=== PATIENT | female | born 1955 | race Caucasian/White ===

== ENCOUNTER 2016-03-06 12:10 | Emergency (ER) | payer MEDICARE ==
--- NOTE | 2016-03-06 12:32 | ERNOTE ---
Headache ER HPI - General Presenting Symptoms: headache, "migraine" Time Seen by Provider: 03/06/16 12:21 Source: patient Exam Limitations: no limitations - Immun/Allergies/Home Medications Immunizations: IMMUNIZATION HX Immunizations Up to Date Yes History of Influenza Vaccine No Hx Pneumococcal Vaccination No Allergies/Adverse Reactions: Allergies No Known Allergies Allergy (Verified 12/09/15 19:21) Home Medications: HOME MEDICATIONS Aspirin [Aspirin Enteric Coated] 81 mg PO DAILY 07/25/12 [Last Taken Unknown] Atenolol [Tenormin] 100 mg PO HS 07/25/12 [Last Taken Unknown] Benazepril HCl [Lotensin] 80 mg PO DAILY 07/25/12 [Last Taken 02/05/15 08:00] Ezetimibe [Zetia] 10 mg PO HS 07/25/12 [Last Taken Unknown] Fluvoxamine Maleate [Luvox Cr] 300 mg PO HS 07/25/12 [Last Taken Unknown] Insulin Lispro [Humalog] 30 unit SQ TID 07/25/12 [Last Taken Unknown] Simvastatin [Zocor] 20 mg PO HS 07/25/12 [Last Taken Unknown] Gabapentin 900 mg PO BID 09/09/13 [Last Taken Unknown] Insulin Glargine,Hum.rec.anlog [Lantus] 70 units SC BID 10/22/14 [Last Taken Unknown] Nitroglycerin [Nitrostat] 0.4 mg SL [id number] PRN 10/22/14 [Last Taken Unknown] Quetiapine Fumarate [Seroquel] 50 mg PO HS 10/22/14 [Last Taken Unknown] Zolpidem Tartrate [Ambien] 10 mg PO HS 10/22/14 [Last Taken Unknown] clonazePAM [Klonopin] 0.5 mg PO BID PRN 10/22/14 [Last Taken Unknown] rOPINIRole HCL [Requip] 0.5 mg PO HS 10/22/14 [Last Taken Unknown] Gabapentin [Neurontin] 1,200 mg PO HS 02/02/15 [Last Taken Unknown] Nystatin 100,000 unit PO QID PRN #300 oral.susp 12/09/15 [Last Taken Unknown] - History of Present Illness Narrative: PAtient started with a migraine headache yesterday during the night. This feels like the regular migraines that she gets every other month. The pain is like a band around her eyes, worse behind the right eye, nausea, no vomiting Date (Duration): 03/05/16 Time (Timing): 03:00 Activity at onset: other - sleep Timing of Headache: gradual, constant Quality: Present: achy, pressure, throbbing Severity Maximum: Present: severe Headache frequency: Present: frequent headaches Modifying Factors - (Worsens): Reports: movement, exposure to light Associated Symptoms: Reports: nausea. Denies: fever/chills, vomiting, nasal congestion, nasal drainage, weakness, vision changes, dizziness, loss of consciousness, neck pain/stiffness Exacerbated by:: Reports: light, noise, movement Prior Treament: Reports: similar symptoms before. Denies: recently seen Review of Systems - Review of Systems Constitutional: Absent: recent illness, fever EYE: Absent: vision changes ENT: Absent: nose congestion Respiratory: Absent: shortness of breath, cough Cardiology: Absent: chest pain Gastrointestinal/Abdominal: Present: nausea, diarrhea - chronic. Absent: vomiting Genitourinary: Present: no symptoms reported Neurological: Present: See HPI, headache. Absent: weakness, numbness - Patient's Past Medical History Patient History - Medical: Anxiety, Diabetes Type 2, Depression, Migraines, Osteoarthritis, Renal Failure Patient History - Cardiac/Respiratory: Hypertension, Hyperlipidemia Patient History - Cancer: No Hx of Cancer Patient History - Surgical Procedures: Total Hip Replacement, Total Knee Replacement - Family History Mother Family History - Medical: Family History - Cardiac/Respiratory: Hypertension Father Family History - Medical: , Alcohol Abuse Family History - Cardiac/Respiratory: CVA/Stroke, Hypertension - Social History Living Situations: home Smoking Status: Former smoker Alcohol Use: none Drug Use: none Physical Exam - Physical Exam General Appearance: Present: wd/wn, alert, mild distress, obese Eye Exam: Normal inspection: bilateral, PERRL: bilateral Ears, Nose, Throat: Present: normal ENT inspection, normal pharynx Neck: Present: normal inspection, nontender, full range of motion Respiratory: Present: no respiratory distress, normal breath sounds, no accessory muscle use, lungs clear Cardiovascular/Chest: Present: regular rate, rhythm, no murmur Neurological Exam: Present: alert, oriented, normal mood/affect, no motor/ sensory deficits Skin Exam: Present: normal color, warm/dry ED Progress - Vital Signs Patient's Vital Signs:: I have reviewed the patient's vital signs. - Progress/Reassessment Progress Note-Subjective: 03/06/16 12:45 discussed medications as patient has decreased kidney function will not give toradol patient states that stadol helped well in the past, no relieve with benadryl 03/06/16 13:18 patient states that her headache is better and she would like to go home will check her blood pressure at home Departure Clinical Impression: Migraine headache Qualifiers: Migraine type: unspecified Status migrainosus presence: without status migrainosus Intractability: not intractable Qualified Code(s): G43.909 - Migraine, unspecified, not intractable, without status migrainosus - Departure Disposition: Home self-care Condition: Good Instructions: Recurrent Migraine Headache, [id number] Referrals: Ray Sawyer DO [Primary Care Provider] -
[2016-03-06] MEDS ORDERED: BUTORPHANOL TARTRATE 2 MG/ML VIAL IM ONE (12:45)
[2016-03-06] MEDS ORDERED: PROMETHAZINE HCL 50 MG/ML AMPUL IM ONE ×2 (12:45→12:52)
[2016-03-06] MEDS ORDERED: BUTORPHANOL TARTRATE 2 MG/ML VIAL ONE (12:53)
[2016-03-06 13:14] VITALS: BP 197/94
== END 2016-03-06 13:24 | disposition home or self-care (01) ==
LOC: ER 12:10
DX: G43.909 Migraine, unspecified, not intractable, without status migrainosus (principal); Z87.891 Personal history of nicotine dependence; E11.9 Type 2 diabetes mellitus without complications; Z79.4 Long term (current) use of insulin; F41.9 Anxiety disorder, unspecified; F32.9 Major depressive disorder, single episode, unspecified; I10 Essential (primary) hypertension; E78.5 Hyperlipidemia, unspecified

== ENCOUNTER 2016-03-29 08:39 | Emergency (ER) | payer MEDICARE ==
[2016-03-29] MEDS ORDERED: MORPHINE SULFATE 2 MG/ML DISP.SYRIN IM ONE (09:57)
[2016-03-29 09:58] VITALS: BP 165/90
[2016-03-29] MEDS ORDERED: MORPHINE SULFATE 2 MG/ML DISP.SYRIN ONE (09:59)
--- NOTE | 2016-03-29 10:06 | ERNOTE ---
Trauma/Assault HPI - Narrative Date of Service: 03/29/16 - General Stated Complaint: FALL-ARM INJURY Time Seen by Provider: 03/29/16 08:54 Source: patient Exam Limitations: no limitations - Immun/Allergies/Home Medications Immunizations: IMMUNIZATION HX Immunizations Up to Date Yes History of Influenza Vaccine No Hx Pneumococcal Vaccination No Allergies/Adverse Reactions: Allergies No Known Allergies Allergy (Verified 03/29/16 08:52) Home Medications: HOME MEDICATIONS Aspirin [Aspirin Enteric Coated] 81 mg PO DAILY 07/25/12 [Last Taken Unknown] Atenolol [Tenormin] 100 mg PO HS 07/25/12 [Last Taken Unknown] Benazepril HCl [Lotensin] 80 mg PO DAILY 07/25/12 [Last Taken 02/05/15 08:00] Ezetimibe [Zetia] 10 mg PO HS 07/25/12 [Last Taken Unknown] Fluvoxamine Maleate [Luvox Cr] 300 mg PO HS 07/25/12 [Last Taken Unknown] Insulin Lispro [Humalog] 30 unit SQ TID 07/25/12 [Last Taken Unknown] Simvastatin [Zocor] 20 mg PO HS 07/25/12 [Last Taken Unknown] Gabapentin 900 mg PO BID 09/09/13 [Last Taken Unknown] Insulin Glargine,Hum.rec.anlog [Lantus] 70 units SC BID 10/22/14 [Last Taken Unknown] Nitroglycerin [Nitrostat] 0.4 mg SL [id number] PRN 10/22/14 [Last Taken Unknown] Quetiapine Fumarate [Seroquel] 50 mg PO HS 10/22/14 [Last Taken Unknown] Zolpidem Tartrate [Ambien] 10 mg PO HS 10/22/14 [Last Taken Unknown] clonazePAM [Klonopin] 0.5 mg PO BID PRN 10/22/14 [Last Taken Unknown] rOPINIRole HCL [Requip] 0.5 mg PO HS 10/22/14 [Last Taken Unknown] Gabapentin [Neurontin] 1,200 mg PO HS 02/02/15 [Last Taken Unknown] Nystatin 100,000 unit PO QID PRN #300 oral.susp 12/09/15 [Last Taken Unknown] Hydrocodone/Acetaminophen [[place] 5-325 Tablet] 1 tab PO Q6H PRN #20 tab [Last Taken Unknown] - History of Present Illness Narrative: Patient fell just [employer]. She states she was half asleep and fell on her left arm. Immediate pain left arm, can be severe with movement. This is mostly localized to the shoulder area. No syncope. No LOC, no CHAUDHARI. No midline neck or back pain. Left forearm also hurts. Mild right lateral hip pain. Pain worse with movement. Has not seen anyone else for this. No CP or SOB, no abdominal pain. Location Occurred: Reports: home Pain Location: Reports: other - mostly left shoulder. Also right lateral hip and left forearm. Method of Injury: Reports: fall, other - no syncope Severity: severe Modifying Factors - (Improves): Reports: rest Modifying Factors - (Worsens): Reports: movement Loss of Consciousness: Reports: no loss of consciousness Associated Symptoms - Trauma: Denies: lightheadedness, abdominal pain Review of Systems - Review of Systems Constitutional: Absent: fever EYE: Present: no symptoms reported ENT: Present: no symptoms reported Respiratory: Absent: shortness of breath Cardiology: Absent: chest pain Gastrointestinal/Abdominal: Absent: abdominal pain Musculoskeletal: Present: See HPI Skin: Present: other - no laceration - Patient's Past Medical History Patient History - Medical: Chronic Pain, Diabetes Type 2, Renal Disease, Other Patient History - Cardiac/Respiratory: Hypertension, Hyperlipidemia Patient History - Cancer: No Hx of Cancer Patient History - Surgical Procedures: Appendectomy, Cholecystectomy, Total Hip Replacement, Total Knee Replacement, Other - Family History Mother Family History - Medical: Family History - Cardiac/Respiratory: Hypertension Father Family History - Medical: , Alcohol Abuse Family History - Cardiac/Respiratory: CVA/Stroke, Hypertension - Social History Living Situations: home Smoking Status: Never smoker Have you smoked in the past 12 months: No Alcohol Use: none Drug Use: none Physical Exam - Physical Exam General Appearance: Present: alert, no apparent distress Eye Exam: Normal inspection: bilateral, PERRL: bilateral Ears, Nose, Throat: Present: normal ENT inspection, normal pharynx. Absent: dry mucous membranes Neck: Present: normal inspection, other - trachea midline. There is no localizing point vertebral tenderness posteriorly. No suggestion of c-spine injury. Respiratory: Present: no respiratory distress, normal breath sounds, lungs clear Cardiovascular/Chest: Present: regular rate, rhythm, normal peripheral pulses Peripheral Pulses: N=norm/S=strong/W=weak/B=bound/A=absent: Radial (L): Normal Gastrointestinal/Abdominal: Present: normal bowel sounds, nontender, soft. Absent: tenderness Back Exam: Present: normal inspection, no vertebral tenderness, other - no bone tenderness T/L spine Extremity Exam: Present: other - Tenderness left shoulder. Mild left forearm. Limited ROM left shoulder. No elbow tendenress or wrist/hand tenderness. Strong pulses. No compartment syndrome. Mild lateral left hip tendenress. Otherwise LE not tender and normal ROM except left shoulder Neurological Exam: Present: alert, oriented, normal mood/affect, no motor/ sensory deficits, other - Pain limits exam but no clear motor defidits. No deficits to LT including lateral left shoulder. Skin Exam: Present: other - no laceration ED Progress - Vital Signs Patient's Vital Signs:: I have reviewed the patient's vital signs. Vital Signs: Vital Signs 03/29/16 03/29/16 08:47 09:57 Temperature 36.9 C Pulse Rate 89 89 Respiratory 14 14 Rate Blood Pressure 190/97 165/90 O2 Sat by Pulse 97 95 Oximetry - X-Ray X-Ray #1 X-Ray: pelvis/hip, shoulder, humerus and forearm X-ray Comments: I reviewed all x-ray reports and x-ray results. - Progress/Reassessment Chief Complaint: Fall Progress:: Re-examined Progress Note-Subjective: 03/29/16 10:19 D/W Ortho (Lila Rodas) who looked at x-rays. Shoulder immobilizer and office follow-up sunday. Departure Clinical Impression: Fall, Fracture of humeral head, left, closed - Departure Disposition: Home self-care Condition: Stable Instructions: Humerus Fracture Treated With Immobilization, [id number] Additional Instructions: Rest. Ice. Shoulder Immobilizer as directed. You are to be seen by orthopedics Sunday. Call today for an appointment time. Return for increased pain, numbness, tingling, weakness or if your condition worsens or changes in any way. No driving with pain meds. Referrals: Ray Sawyer DO [Primary Care Provider] - Prescriptions: Hydrocodone/Acetaminophen [[place] 5-325 Tablet] 1 tab PO Q6H PRN #20 tab PRN Reason: Pain
== END 2016-03-29 10:37 | disposition home or self-care (01) ==
LOC: ER 08:39
PROC: 2W39X1Z Immobilization of Left Upper Extremity using Splint (ICD-10-PCS; principal; 2016-03-29)
DX: S42.292A Other displaced fracture of upper end of left humerus, initial encounter for closed fracture (principal); W19.XXXA Unspecified fall, initial encounter; E11.9 Type 2 diabetes mellitus without complications; Z79.4 Long term (current) use of insulin; I10 Essential (primary) hypertension; E78.5 Hyperlipidemia, unspecified

== ENCOUNTER 2016-04-16 09:02 | Emergency (ER) | payer MEDICARE ==
--- OUTSIDE RECORDS SUMMARY | 2016-04-16 09:58 | XMS REPORT | Continuity of Care Document ---
:1955 Author Organization [facility] ([facility]) Address [address] [place] [address] Phone [phone] Care Team Providers Name Role Phone Ray Sawyer Primary Care Provider Unavailable Source Comments This disclosure is being made pursuant to the Care Everywhere program, applicable federal and state laws, and may not contain all informaitonavailable regarding this patient.[facility] ([facility]) Active Allergies and Adverse Reactions Allergen Noted Date Severity Reactions Comments No Known Allergies 06/30/2008 NO REACTION Current Medications Prescription Sig. Disp. Refills Start Date End Date Status fluvoxamine (LUVOX) Take 200 mg by mouth Active 100 mg tablet every evening. zolpidem (AMBIEN CR) Take 12.5 mg by Active 12.5 mg CR tablet mouth at bedtime as needed. atenolol (TENORMIN) Take 100 mg by mouth Active 100 mg tablet daily. aspirin 81 mg EC Take 81 mg by mouth Active tablet daily. insulin lispro inject Active (HUMALOG) 100 subcutaneously 4 unit/mL injection times daily. Indications: Diabetes Mellitus, As per sliding scale QID albuterol 2.5 mg/3 Use 3 mL by Active mL inhalation inhalation every 6 solution hours as needed. insulin glargine inject Active (LanTUS) 100 unit/mL subcutaneously. injection vial Inject 60 units every morning and 70 units at bedtime. simvastatin 20 mg Take 20 mg by mouth Active tablet every evening. ezetimibe (ZETIA) 10 Take 10 mg by mouth Active mg tablet daily. benazepril 40 mg Take 40 mg by mouth Active tablet 2 times daily. rOPINIRole 0.5 mg Take 0.5 mg by mouth Active tablet 3 times daily. clonazePAM 0.5 mg Take 0.5 mg by mouth Active tablet at bedtime as needed (almost every day). multivitamin tablet Take 1 Tab by mouth Active daily. gabapentin 300 mg 01/11/2015 Active capsule QUEtiapine 50 mg 02/23/2015 Active tablet HYDROcodone-acetamin 12/15/2015 Active ophen 5-325 mg per tablet nitrofurantoin 12/10/2015 Active (MACROBID) 100 mg capsule metFORMIN 500 mg Take 2 tablets 360 tablet 3 12/16/2015 Active tablet (1,000 mg total) by mouth 2 times daily. liraglutide Inject 0.2 mL (1.2 6 mL 11 12/16/2015 Active (VICTOZA) 0.6 mg/0.1 mg total) mL injection pen (3 subcutaneously mL) daily. SUPPLY BD ULTRA-FINE Use daily with 100 Each 3 12/16/2015 Active JAY 32 x 4 MM pen liraglutide needle diltiazem 120 mg ER Take 1 capsule (120 90 capsule 7 01/13/2016 Active capsule mg total) by mouth daily. 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 Last Filed Vital Signs Vital Sign Reading Time Taken Blood Pressure 151/81 01/13/2016 4:18 PM [facility] Pulse 83 01/13/2016 4:18 PM [facility] Temperature 37 C (98.6 F) 01/13/2016 4:18 PM [facility] Respiratory Rate 16 01/01/2013 9:05 AM CDT Height 1.57 m (5' 1.81") 01/13/2016 4:18 PM [facility] Weight 105.9 kg (233 lb 7.5 oz) 01/13/2016 4:18 PM [facility] Body Mass Index 42.96 01/13/2016 4:18 PM [facility] Oxygen Saturation 95% 10/16/2012 11:21 AM CDT Plan of Care Date Type Specialty Providers Description 04/17/2016 Appointment Diabetes Services Oswaldo Vasquez MD Subj: Upcoming Appt [address] [place] [address] [phone] (Fax) 04/17/2016 Appointment Diabetes Services Dian Mcintosh RD Subj: Upcoming Appt LD Reminder [address] [place] [address] [phone] (Fax) 07/11/2016 Appointment Urology Pam Cramer, Subj: Appointment MD Scheduled [address] [place] [address] [phone] (Fax) Health Maintenance Due Date Last Done Comments HCV Screening 1955 Hepatitis B Vaccine (1 of 3 - 1955 Primary Series) Tdap Vaccine 09/30/1966 MMR Vaccine 09/30/1973 Td Vaccine 09/30/1973 Pneumococcal Vaccine (1 of 09/30/1974 - PPSV23) DIABETIC: Triglycerides 09/04/2002 09/04/2001 Colonoscopy 09/30/2005 DIABETIC: Microalbumin 01/19/2006 01/19/2005 Cervical Cancer Screening 05/01/2006 05/01/2003 DIABETIC: Cholesterol 05/04/2006 05/04/2005, 09/04/2001, 08/08/2001 Diabetic: Hdl 05/04/2006 05/04/2005, 09/04/2001, 08/08/2001 Diabetic: Ldl 05/04/2006 05/04/2005, 09/04/2001 DIABETIC: Foot Exam 08/16/2010 DIABETIC: Retinal Eye Exam 08/16/2010 Mammogram 12/17/2014 12/17/2013 (Previously completed) Zoster Vaccine 2015 Influenza Vaccine: Seasonal 10/04/2015 (#1) DIABETIC: Hemoglobin A1C 06/15/2016 12/16/2015, Additional history exists 08/05/2014, 08/14/2011 Procedures from Last 3 Months Procedure Name Priority Date/Time Associated Diagnosis Comments ABSTRACTED BY Routine 02/01/2016 6:57 Other urinary Results for this BILLING STAFF - NW AM [facility] incontinence procedure are in the results section. Results from Last 3 Months OTHER PROCEDURE (02/01/2016 6:57 AM) Narrative Pam Cramer MD 02/01/20166:57 AM Urology Clinic Note Encounter Date: 01/11/2016 Subjective: Chief Complaint Chief Complaint Patient presents with Patient Reported Reason For Visit RTN 3-4 months History of Present Illness: Lesly Michaud is a 60 y.o. female seen as follow up. The patient has has hx of fascia lauren sling for TOYA with subsequent improvement in symptoms. She underwent InterStim placement in September 2012 for urinary urgency-frequency which worked very well initially. She was last seen in March 2015 at which time the InterStim appeared to not be working well. However, upon interrogation the device was working correctly. At that time her symptoms were more consistent with nocturnal enuresis and UUI. She was asked to fill a voiding diary and was recommended to use her CPAP for ODALIS consistently. She returned last to urology on 08/12/15. She underwent right hip replacement on July 12, 2015 and after the procedure she had a UTI which was treated with antibiotics with subsequent development of vaginal yeast infection and thrush. She continued to be bothered by her symptoms, mainly nocturia x [address] to the toilette most of the times, and occasional nocturnal enuresis. She reported that she wore diapers at all times .At that time, she was told tosee her PCPfor management of DM and lower extremity edema. Today the patient states she has better control blood sugars. She also uses her CPAP machine each evening for her obstructive sleep apnea that she thinks helps as well. She reports a better control of symptoms. She has some urgency. She does not leak a lot of urine and uses a depends only at night. Other past medical history unchanged since previous urology visit. Social history: Previous smoker. Family history: No cancer. Active Problem List with Overview Notes Diagnosis Date Noted Peripheral neuropathy 08/05/2014 TOYA (stress urinary incontinence, female) 08/14/2011 Mixed stress and urge urinary incontinence 05/24/2011 Type II or unspecified type diabetes mellitus without mention of complication, uncontrolled 01/19/2005 Other and unspecified hyperlipidemia 01/19/2005 Unspecified essential hypertension 09/23/2001 Past Surgical History Procedure Laterality Date Tonsillectomy and adenoidectomy Appendectomy Carpal tunnel [id number] Rt Cholecystectomy, [id number] Total knee [id number] left Hysterectomy Cholecystectomy Gu urodynamic06/30/2011 Sling opration f/strs incont08/14/2011 Procedure: SLING FOR OPERATION TOYA (FASCIA JAMILAH OR RECTUS GRAFT);Surgeon: Pam Cramer MD;Location: MAIN OR; Service: Urology Family History Problem Relation Age of Onset Thyroid Disease Mother goiter Social History Social History Marital Status: Spouse Name: N/A Number of Children: N/A Years of Education: N/A Occupational History Not on file. 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 aspirin 81 mg EC tablet Take 81 mg by mouth daily. atenolol (TENORMIN) 100 mg tablet Take 100 mg by mouth daily. benazepril 40 mg tablet Take 40 mg by mouth 2 times daily. clonazePAM 0.5 mg tablet Take 0.5 mg by mouth at bedtime as needed (almost every day). ezetimibe (ZETIA) 10 mg tablet Take 10 mg by mouth daily. fluvoxamine (LUVOX) 100 mg tablet Take 200 mg by mouth every evening. gabapentin 300 mg capsule HYDROcodone-acetaminophen 5-325 mg per tablet insulin glargine (LanTUS) 100 unit/mL injection vial inject subcutaneously. Inject 60 units every morning and 70 units at bedtime. insulin lispro (HUMALOG) 100 unit/mL injection inject subcutaneously 4 times daily. Indications: Diabetes Mellitus, As per sliding scale QID liraglutide (VICTOZA) 0.6 mg/0.1 mL injection pen (3 mL) Inject 0.2 mL (1.2 mg total) subcutaneously daily. 6 mL 11 metFORMIN 500 mg tablet Take 2 tablets (1,000 mg total) by mouth 2 times daily. 360 tablet 3 multivitamin tablet Take 1 Tab by mouth daily. nitrofurantoin (MACROBID) 100 mg capsule QUEtiapine 50 mg tablet rOPINIRole 0.5 mg tablet Take 0.5 mg by mouth 3 times daily. simvastatin 20 mg tablet Take 20 mg by mouth every evening. SUPPLY BD ULTRA-FINE JAY 32 x 4 MM pen needle Use daily with liraglutide 100 Each 3 zolpidem (AMBIEN CR) 12.5 mg CR tablet Take 12.5 mg by mouth at bedtime as needed. No current facility-administered medications for this visit. Allergies Allergen Reactions No Known Allergies NO REACTION Review of Systems All systems were reviewed and are negative except for: Constitutional: Night Sweats, Tired or sleepy Eyes: Blurry vision, Trouble seeing with glasses Ears: Ringing in the ears Nose/throat/mouth: Nose problems GI: Stomach pain, Nausea, Loss of bowel control, Constipation, Diarrhea, Black stools Urogenital:Burning on urination, Recent urinary infection Musculoskeletal: Joint pain, Joint stiffness, Leg Pain Neurological: Dizziness, Numbness of an arm/leg, Weakness of an arm/leg Mental Health: Anxiety Kidney disease: Yes See HPI. All other ROS negative. Objective: BP 183/84 mmHg | Pulse 81 | Temp(Src) 36.3 C (97.4 F) (Tympanic) General: alert and in no apparent distress. Psych: normal affect Eyes: eyes anicteric Mouth: oral mucosa moist Neck: No carotid bruit Cardiac: Normal rate and rhythm Respiratory: Lungs CTA. Musculoskeletal:extremitiesatraumatic, no cyanosis or edema Neuro: grossly normal Abdominal: soft, non-tender. Back: No CVA tenderness In terstim interrogation Supervision type: Indirect InterStim device off .InterStim was then turned on. Interrogation shows program 1 for 100% of the time. Positive lead 3. Negative lead 2 and 1. Amplitude 3.5. Impedance checks range 544-1122. Longevity 14-24 months. Assessment: Lesly Michaud is a 60 y.o. female with hx of fascia lauren sling for TOYA with subsequent improvement in symptoms. S/p InterStim placement in September 2012. Plan: Return in 6 months follow up. Staff Physician Comments Staff Involved Staff and PA/ORAL HYGIENIST/PNP/NM (team effort NPP & Faculty documentation) Staff Physician Statement I have discussed the case with the non-physician provider and have personally documented the History, Physical Exam, and Assessment and Plan in the Staff Physician Note section as noted below. Staff Physician Note History (document those sections reviewed, i.e., HPI, ROS, Medical, Family, Social): Ms. Michaud is a 60 yo female with a long hx of TJ s/p FL sling and Interstim placement.At her last visit she was having she was still having issues with night.Since using her CPAP more regularly her night symptoms have improved.She still uses a depends at night only.Day she has some urgency but overall has better control. Physical Exam: BP 183/84 mmHg | Pulse 81 | Temp(Src) 36.3 C (97.4 F) (Tympanic) General appearance: alert, cooperative, no distress, appears stated age Assessment: Ms. Michaud is a 60 yo female s/p FL sling and Interstim placement who has had improvement in symptoms with BGT control and use of CPAP for her ODALIS. ICD-9-CM ICD-10-CM 1. Other urinary incontinence 788.39 N39.498 FOLLOW-UP - UROLOGY OTHER PROCEDURE Plan: RTC in 6 months Pam Cramer MD Clinical Social Worker Clinical Department of Urology Valerie Jo PA-C
[2016-04-16 12:09] VITALS: BP 168/92
--- NOTE | 2016-04-16 12:23 | ERNOTE ---
Upper Extremity HPI - Narrative Date of Service: 04/16/16 - General Extremities Pain Location: shoulder: left Time Seen by Provider: 04/16/16 09:31 Source: patient Exam Limitations: no limitations - Immun/Allergies/Home Medications Immunizations: IMMUNIZATION HX Immunizations Up to Date Yes History of Influenza Vaccine No Hx Pneumococcal Vaccination No Allergies/Adverse Reactions: Allergies Allergy/AdvReac Type Severity Reaction Status Date / Time No Known Allergies Allergy Verified 04/16/16 09:15 Home Medications: HOME MEDICATIONS Aspirin [Aspirin Enteric Coated] 81 mg PO DAILY 07/25/12 [Last Taken Unknown] Atenolol [Tenormin] 100 mg PO HS 07/25/12 [Last Taken Unknown] Benazepril HCl [Lotensin] 80 mg PO DAILY 07/25/12 [Last Taken 02/05/15 08:00] Ezetimibe [Zetia] 10 mg PO HS 07/25/12 [Last Taken Unknown] Fluvoxamine Maleate [Luvox Cr] 300 mg PO HS 07/25/12 [Last Taken Unknown] Insulin Lispro [Humalog] 30 unit SQ TID 07/25/12 [Last Taken Unknown] Simvastatin [Zocor] 20 mg PO HS 07/25/12 [Last Taken Unknown] Gabapentin 900 mg PO BID 09/09/13 [Last Taken Unknown] Insulin Glargine,Hum.rec.anlog [Lantus] 70 units SC BID 10/22/14 [Last Taken Unknown] Nitroglycerin [Nitrostat] 0.4 mg SL [id number] PRN 10/22/14 [Last Taken Unknown] Quetiapine Fumarate [Seroquel] 50 mg PO HS 10/22/14 [Last Taken Unknown] Zolpidem Tartrate [Ambien] 10 mg PO HS 10/22/14 [Last Taken Unknown] clonazePAM [Klonopin] 0.5 mg PO BID PRN 10/22/14 [Last Taken Unknown] rOPINIRole HCL [Requip] 0.5 mg PO HS 10/22/14 [Last Taken Unknown] Gabapentin [Neurontin] 1,200 mg PO HS 02/02/15 [Last Taken Unknown] Nystatin 100,000 unit PO QID PRN #300 oral.susp 12/09/15 [Last Taken Unknown] Hydrocodone/Acetaminophen [[place] 5-325 Tablet] 1 tab PO Q6H PRN #20 tab [Last Taken Unknown] Metformin HCl [Glumetza] 500 mg PO BID 04/16/16 [Last Taken Unknown] oxyCODONE HCL/ACETAMINOPHEN [Percocet 5 MG/325 MG] 1 tab PO Q6H PRN #20 tablet 04/16/16 [Last Taken Unknown] - History of Present Illness Narrative: patient has a known left proximal humerus fracture and has seen ortho for this. She is in an shoulder immobilizer. She has another fall (she suffers from frequent falls and is being seen [facility] for this) 2 days ago, landing on the shoulder. She has more pain in the shoulder since then. No other injuries. Her hand is swollen on the left since the fracture. No acute focal N/T/W. Pain worse with any kind of movement. No fever. Occurred: other - initial injury 2 weeks ago Location of Incident: home Severity: other - pain can be severe with movement Method of Injury: Reports: fell Reason for Fall: Reports: other - frequent dalls Loss of Consciousness: Reports: no loss of consciousness Modifying Factors - (Improves): Reports: immobilization Modifying Factors - (Worsens): Reports: movement Associated Symptoms: Reports: other - hand swelling. Denies: tingling, weakness , numbness distally, loss of feeling Other Injuries: Reports: none Prior Treament: Reports: recently seen Review of Systems - Review of Systems Constitutional: Absent: fever Respiratory: Present: no symptoms reported Cardiology: Present: no symptoms reported Gastrointestinal/Abdominal: Present: no symptoms reported - Patient's Past Medical History Patient History - Medical: Chronic Pain, Diabetes Type 2, Renal Disease, Other Patient History - Cardiac/Respiratory: Hypertension, Hyperlipidemia Patient History - Cancer: No Hx of Cancer Patient History - Surgical Procedures: Appendectomy, Cholecystectomy, Total Hip Replacement, Total Knee Replacement, Other Patient History - Other: None - Family History Mother Family History - Medical: Family History - Cardiac/Respiratory: Hypertension Father Family History - Medical: , Alcohol Abuse Family History - Cardiac/Respiratory: CVA/Stroke, Hypertension - Social History Living Situations: home Abuse History: No History of abuse Psych History: Hx of Anxiety, Hx of Depression Alcohol Use: none Drug Use: none - Immunizations Immunizations Up to Date: Yes Hx Pneumococcal Vaccination: No History of Influenza Vaccine: No Physical Exam - Physical Exam General Appearance: Present: alert, no apparent distress Eye Exam: Normal inspection: bilateral, PERRL: bilateral Ears, Nose, Throat: Present: normal ENT inspection Neck: Present: normal inspection. Absent: tender posterior midline Respiratory: Present: no respiratory distress, no accessory muscle use, lungs clear Cardiovascular/Chest: Present: regular rate, rhythm, normal peripheral pulses, other - strong radial pulse Gastrointestinal/Abdominal: Present: normal bowel sounds, nontender Back Exam: Present: normal range of motion, other. Absent: vertebral tenderness Extremity Exam: Present: other - Tenderness left shoulder, in immobilizer. Bruising noted. Mild swelling left hand. This is likely from the proximal fracture. No compartment syndrome or other tendenress noted. Strong radial pulse Neurological Exam: Present: alert, normal mood/affect, no motor/sensory deficits , other - Exam limited by pain and immobilizer but no clear acute focl motor or sensory deficits. No clear LUE deficits. Skin Exam: Absent: skin rash ED Progress - Vital Signs Patient's Vital Signs:: I have reviewed the patient's vital signs. Vital Signs: Vital Signs 04/16/16 09:10 Temperature 36.0 C L Pulse Rate 84 Respiratory 12 Rate Blood Pressure 179/98 O2 Sat by Pulse 96 Oximetry - X-Ray X-Ray #1 X-Ray: shoulder Interpretation: Reviewed by me X-ray Comments: I reviewed official radiology report - CT/Ultrasound CT/Ultrasound Narrative: US negative for DVT. Official report reviewed. - Progress/Reassessment Chief Complaint: Upper Extremity Injury/Problem Progress Note-Subjective: 04/16/16 12:22 i spoke with Kalin Alston after imaging back. He recommends CPM and office f/u. Pt agreeable. I discussed warning signs and reasons to return as well as the need for close f/u. Departure Clinical Impression: Arm pain, Proximal humerus fracture - Departure Disposition: Home self-care Condition: Stable Instructions: Humerus Fracture Treated With Immobilization, [id number] Additional Instructions: I discussed your case with orthopedicsLv. Continue your immobilizer. Call the office tomorrow with phone follow-up. Stop current pain medications and begin new pain medications, no driving while taking. Return for increased pain, numbness, tingling, weakness or if your condition worsens or changes in any way. Referrals: Ray Sawyer DO [Primary Care Provider] - Prescriptions: oxyCODONE HCL/ACETAMINOPHEN [Percocet 5 MG/325 MG] 1 tab PO Q6H PRN #20 tablet PRN Reason: Pain
== END 2016-04-16 12:08 | disposition home or self-care (01) ==
LOC: ER 09:02
DX: S42.202A Unspecified fracture of upper end of left humerus, initial encounter for closed fracture (principal); M79.602 Pain in left arm; W19.XXXA Unspecified fall, initial encounter; Z91.81 History of falling; Y92.009 Unspecified place in unspecified non-institutional (private) residence as the place of occurrence of the external cause; E11.9 Type 2 diabetes mellitus without complications; Z79.4 Long term (current) use of insulin; I10 Essential (primary) hypertension; E78.5 Hyperlipidemia, unspecified

== ENCOUNTER 2016-06-19 20:40 | Emergency (ER) | payer MEDICARE ==
--- NOTE | 2016-06-19 21:01 | ERNOTE ---
Trauma/Assault HPI - Narrative Date of Service: 06/19/16 - General Stated Complaint: FALL - POSSIBLE PILL OVERDOSE Time Seen by Provider: 06/19/16 20:57 Source: patient - Immun/Allergies/Home Medications Immunizations: IMMUNIZATION HX Immunizations Up to Date Yes History of Influenza Vaccine No Hx Pneumococcal Vaccination No Allergies/Adverse Reactions: Allergies No Known Allergies Allergy (Verified 04/16/16 09:15) Home Medications: HOME MEDICATIONS Aspirin [Aspirin Enteric Coated] 81 mg PO DAILY 07/25/12 [Last Taken Unknown] Atenolol [Tenormin] 100 mg PO HS 07/25/12 [Last Taken Unknown] Benazepril HCl [Lotensin] 80 mg PO DAILY 07/25/12 [Last Taken 02/05/15 08:00] Ezetimibe [Zetia] 10 mg PO HS 07/25/12 [Last Taken Unknown] Fluvoxamine Maleate [Luvox Cr] 300 mg PO HS 07/25/12 [Last Taken Unknown] Insulin Lispro [Humalog] 30 unit SQ TID 07/25/12 [Last Taken Unknown] Simvastatin [Zocor] 20 mg PO HS 07/25/12 [Last Taken Unknown] Gabapentin 900 mg PO BID 09/09/13 [Last Taken Unknown] Insulin Glargine,Hum.rec.anlog [Lantus] 70 units SC BID 10/22/14 [Last Taken Unknown] Nitroglycerin [Nitrostat] 0.4 mg SL [id number] PRN 10/22/14 [Last Taken Unknown] QUEtiapine FUMARATE [Seroquel] 50 mg PO HS 10/22/14 [Last Taken Unknown] Zolpidem Tartrate [Ambien] 10 mg PO HS 10/22/14 [Last Taken Unknown] clonazePAM [Klonopin] 0.5 mg PO BID PRN 10/22/14 [Last Taken Unknown] rOPINIRole HCL [Requip] 0.5 mg PO HS 10/22/14 [Last Taken Unknown] Gabapentin [Neurontin] 1,200 mg PO HS 02/02/15 [Last Taken Unknown] Nystatin 100,000 unit PO QID PRN #300 oral.susp 12/09/15 [Last Taken Unknown] HYDROcodone/ACETAMINOPHEN [[place] 5-325 Tablet] 1 tab PO Q6H PRN #20 tab [Last Taken Unknown] metFORMIN HCL [Glumetza] 500 mg PO BID 04/16/16 [Last Taken Unknown] oxyCODONE HCL/ACETAMINOPHEN [Percocet 5 MG/325 MG] 1 tab PO Q6H PRN #20 tablet 04/16/16 [Last Taken Unknown] - History of Present Illness Narrative: 60 year old that fell at home hitting her head. There was no LOC. She admits to EMS that she took too many Clonazepem but denies suicidal ideations. Her spouse believes that she has not been her self all day due to her being argumentative and oppositional. The patient consumed approximately 90 plus tablets of Klonopin in four days. The believes that she was stressed about her son relapsing drug abuse behavior. She also has a history of drug abuse. During the interview the patient had minimal responses to questions, therefore most of the history was obtained from the . The patient denies any pain or shortness of breath. Location Occurred: Reports: home Pain Location: Reports: none Method of Injury: Reports: fall Severity: mild Modifying Factors - (Improves): Reports: other - nothing Modifying Factors - (Worsens): Reports: other - nothing Loss of Consciousness: Reports: no loss of consciousness Associated Symptoms - Trauma: Reports: denies symptoms Review of Systems - Review of Systems Constitutional: Present: no symptoms reported EYE: Present: no symptoms reported ENT: Present: no symptoms reported Respiratory: Present: no symptoms reported Cardiology: Present: no symptoms reported Gastrointestinal/Abdominal: Present: no symptoms reported Genitourinary: Present: no symptoms reported Musculoskeletal: Present: no symptoms reported Skin: Present: no symptoms reported Neurological: Present: no symptoms reported Endocrine: Present: no symptoms reported Hematologic/Lymphatic: Present: no symptoms reported Psych: Present: no symptoms reported - Patient's Past Medical History Patient History - Medical: Chronic Pain, Diabetes Type 2, Renal Disease, Other Patient History - Cardiac/Respiratory: Hypertension, Hyperlipidemia Patient History - Cancer: No Hx of Cancer Patient History - Surgical Procedures: Appendectomy, Cholecystectomy, Total Hip Replacement, Total Knee Replacement, Other Patient History - Other: None - Family History Mother Family History - Medical: Family History - Cardiac/Respiratory: Hypertension Father Family History - Medical: , Alcohol Abuse Family History - Cardiac/Respiratory: CVA/Stroke, Hypertension - Social History Living Situations: home Abuse History: No History of abuse Psych History: Hx of Anxiety, Hx of Depression Alcohol Use: none Drug Use: none - Immunizations Immunizations Up to Date: Yes Hx Pneumococcal Vaccination: No History of Influenza Vaccine: No Physical Exam - Physical Exam General Appearance: Present: no apparent distress Eye Exam: Normal inspection: bilateral, PERRL: bilateral, EOMI: bilateral Ears, Nose, Throat: Present: normal ENT inspection Neck: Present: normal inspection, nontender, supple Respiratory: Present: no respiratory distress Cardiovascular/Chest: Present: regular rate, rhythm Gastrointestinal/Abdominal: Present: nontender, nondistended, soft Back Exam: Present: normal inspection Extremity Exam: Present: normal inspection, other - some difficulty with extending the left hip on commands Neurological Exam: Present: alert, other - appears intoxicated; Slow to respond to commands. Confused when requested to raise either arm. Skin Exam: Present: normal color ED Progress - Results and Orders Patient's Lab Results:: I have reviewed the patient's lab results. - Vital Signs Patient's Vital Signs:: I have reviewed the patient's vital signs. Vital Signs: Vital Signs 06/19/16 20:44 Temperature 37.2 C Pulse Rate 95 Respiratory 18 Rate O2 Sat by Pulse 95 Oximetry - EKG EKG: NSR EKG read: Interp. by me EKG Comments: Rate 91, normal axis - CT/Ultrasound CT/Ultrasound Narrative: Questionable subarachinoid hemorrhage. - Progress/Reassessment Chief Complaint: Fall Progress:: Unchanged Departure Clinical Impression: Overdose, Fall, Head injury - Departure Disposition: Other health care facility Condition: Fair Referrals: Ray Sawyer DO [Primary Care Provider] -
--- OUTSIDE RECORDS SUMMARY | 2016-06-19 21:10 | XMS REPORT | Continuity of Care Document ---
:1955 Author Organization [facility] ([facility]) Address [address] [place] [address] Phone [phone] Care Team Providers Name Role Phone Ray Sawyer Primary Care Provider Unavailable Source Comments This disclosure is being made pursuant to the Care Everywhere program, applicable federal and state laws, and may not contain all informaitonavailable regarding this patient.[facility] ([facility]) Active Allergies and Adverse Reactions Allergen Noted [...] unspecified hyperlipidemia 01/19/2005 Unspecified essential hypertension 09/23/2001 Most Recent Encounters Date Type Specialty Providers Description 04/17/2016 Office Visit Diabetes Services Dian Mcintosh RD Subj: Upcoming Appt LD Reminder 04/17/2016 Office Visit Diabetes Services Oswaldo Vasquez MD Subj: Upcoming Appt Reminder Social History Tobacco Use Types Packs/Day Years Used Date Former Smoker 1.5 20 Quit: 03/05/2004 Smokeless Tobacco: Never Used Tobacco Cessation:Counseling Given: Yes Comments: Alcohol Use Drinks/Week oz/Week Comments No 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 Last Filed Vital Signs Vital Sign Reading Time Taken Blood Pressure 151/81 01/13/2016 4:18 PM DRILL DOCTOR Pulse 83 01/13/2016 4:18 PM DRILL DOCTOR Temperature 37 C (98.6 F) 01/13/2016 4:18 PM DRILL DOCTOR Respiratory Rate 16 01/01/2013 9:05 AM CDT Height 1.57 m (5' 1.81") 01/13/2016 4:18 PM DRILL DOCTOR Weight 105.9 kg (233 lb 7.5 oz) 01/13/2016 4:18 PM DRILL DOCTOR Body Mass Index 42.96 01/13/2016 4:18 PM DRILL DOCTOR Oxygen Saturation 95% 10/16/2012 11:21 AM CDT Plan of Care Date Type Specialty Providers Description 07/04/2016 Appointment Diabetes Services Oswaldo Vasquez MD Subj: Appointment [address] [place] [address] [phone] (Fax) 07/04/2016 Appointment Diabetes Services Dian Mcintosh RD Subj: Appointment LD Rescheduled [address] [place] [address] [phone] (Fax) 07/11/2016 Appointment Urology Pam Cramer, Subj: Appointment Scheduled [address] [place] [address] [phone] (Fax) 07/27/2016 Appointment Neurology Rodriguez Treviño, Subj: Appointment MD Lambert Scheduled [address] [place] [address] [phone] (Fax) Health Maintenance Due Date Last Done Comments HCV Screening 1955 Hepatitis B Vaccine (1 of 3 - 1955 Primary Series) Tdap Vaccine 09/30/1966 MMR Vaccine 09/30/1973 Td Vaccine 09/30/1973 Pneumococcal Vaccine (1 of 1 09/30/1974 - PPSV23) DIABETIC: Triglycerides 09/04/2002 09/04/2001 [...] 06/15/2016 12/16/2015, Additional history exists 08/05/2014, 08/14/2011 Results from Last 3 Months Not on file
[2016-06-19 21:39] LABS: ALT 38 U/L (19-67); AST 20 U/L (0-48); Albumin * 3.3 gm/dl (3.4-5.0); Alkaline Phosphatase * 108 U/L (50-170); Anion Gap 13.6 mmol/L (6.8-13.8); Bilirubin, Total 0.4 mg/dL (0.0-1.1); Blood Urea Nitrogen 27 mg/dL (3-23); Ca. Corrected For Albumin 9.1 mg/dL (8.4-10.2); Calcium * 8.9 mg/dL (7.9-10.9); Chloride 101 mmol/L (97-106); Glucose * 362 mg/dL (70-110); Potassium 3.6 mmol/L (3.4-4.6); Salicylate Less than 2.8 mg/dL (2.8-20.0); Sodium 139 mmol/L (132-142); TSH * 2.325 uIU/mL (0.358-3.74); Total Protein 6.7 gm/dL (6.2-8.2); Troponin I Less than 0.017 ng/ml (0.00-0.10)
[2016-06-19 21:43] LABS: Urine Bilirubin Negative (NEGATIVE); Urine Blood 25 /ul (NEGATIVE); Urine Ketone 5 mg/dL (NEGATIVE); Urine Nitrite Negative (NEGATIVE); Urine Protein 100 mg/dL (NEGATIVE); Urine Specific Gravity 1.015 SP.GR. (1.005-1.010); Urine Urobilinogen Normal (NORMAL)
[2016-06-19 21:54] LABS: Urine Appearance Clear; Urine Color Yellow
[2016-06-19 21:55] LABS: Urine Amorphous Sediment Few - 1+ (NONE-FEW); Urine Bacteria 1+; Urine Coarse Granular Cast TRACE /LPF; Urine Hyaline Cast TRACE /LPF; Urine RBC 0-5 /hpf (0-5); Urine WBC 0-5 /hpf (0-5)
[2016-06-19 22:00] LABS: Cocaine Ur Negative (NEGATIVE); Urine Barbiturate Negative (NEGATIVE); Urine PCP Negative (NEGATIVE); Urine THC Negative (NEGATIVE)
[2016-06-19 22:01] LABS: Urine Benzodiazepines Positive (NEGATIVE); Urine Opiates Positive (NEGATIVE)
[2016-06-19 23:19] VITALS: BP 195/91
== END 2016-06-20 00:38 | disposition short-term general hospital (02) ==
LOC: ER 20:40
DX: S09.90XA Unspecified injury of head, initial encounter (principal); T42.4X1A Poisoning by benzodiazepines, accidental (unintentional), initial encounter; W01.10XA Fall on same level from slipping, tripping and stumbling with subsequent striking against unspecified object, initial encounter; Y92.009 Unspecified place in unspecified non-institutional (private) residence as the place of occurrence of the external cause
CPT/HCPCS: 36415; 70450; 80053; 80307; 81001; 84443; 84484; 87086; 93005; 99284; G0480; G0481

== ENCOUNTER 2016-10-24 08:28 | Observation (INO) | payer MEDICARE ==
[2016-10-24] MEDS ORDERED: RINGER'S SOLUTION,LACTATED 1,000 ML IV ONE (10:02)
[2016-10-24] MEDS: CLONIDINE HCL 0.1 MG TABLET PO ONE ×2 (11:52→16:49)
[2016-10-24] MEDS: ACETAMINOPHEN 500 MG TABLET PO ONE ×2 (11:53→16:21)
[2016-10-24] MEDS: RINGER'S SOLUTION,LACTATED 1,000 ML IV PRN ×2 (12:55→16:57)
[2016-10-24] MEDS: INSULIN LISPRO 100 UNITS/ML VIAL SC SCH ×4 (14:45→23:04)
[2016-10-24] MEDS ORDERED: MORPHINE SULFATE 2 MG/ML DISP.SYRIN IV PRN (15:05)
[2016-10-24] MEDS ORDERED: ONDANSETRON HCL/PF 2 MG/ML VIAL IV PRN (15:05)
--- NOTE | 2016-10-24 15:30 | OR ---
Operative Report - Dictated Report Narrative: Date: 10/24/2016 Preop dx: Multifocal right breast cancer Postop dx: same Procedure: Inject blue dye, right total mastectomy, right axillary deep sentinel lymph node biopsy Staff surgeon: Ed Westfall MD Asst surgeon: Alexi Cabello, M3 Anesthesia: GETA EBL: 150 Drains: VALENTIN x 2 Complications: none apparent Specimens: Right breast, right axillary sentinel lymph nodes. Indications: This patient has invasive cancer in at least two separate locations in the right breast Description: Following the smooth induction of GETA the right breast and axilla were prepped and draped in a sterile fashion. Blue dye was injected subareolar. An elliptical incision was carried out and superior and inferior flaps of a thin nature were developed with electrocautery. The breast was them removed off the pectoral musculature and was excised beyond the axillary tail of lopez. An orienting stitch was place on the medial aspect of the specimen. A neoprobe was used to identify the sentinel node. It was stained blue. It was excised with electrocautery. Hemostasis appeared to be adequate. A VALENTIN drain was placed under the superior and inferior flap respectively. The drains were secured with silk. The subQ was approximated with heavy vicryl. The incision was closed with mirela. Sterile dressings were applied. The patient tolerated the procedure well without apparent complications and was discharged from the OR in stable condition.
[2016-10-24] MEDS: ENOXAPARIN SODIUM 40 MG/0.4 ML SYRG SC SCH (16:18)
[2016-10-24] MEDS: oxyCODONE HCL/ACETAMINOPHEN 1 TAB TABLET PO PRN ×2 (17:56→22:10)
[2016-10-24] MEDS ORDERED: GABAPENTIN 100 MG CAPSULE PO SCH (21:00)
[2016-10-24] MEDS ORDERED: GABAPENTIN 600 MG TABLET ONE (21:56)
[2016-10-24] MEDS ORDERED: rOPINIRole HCL 1 MG TABLET ONE (21:57)
[2016-10-24] MEDS ORDERED: ATENOLOL 50 MG TABLET ONE (21:57)
[2016-10-24] MEDS: INSULIN GLARGINE,HUM.REC.ANLOG 100 UNITS/ML VIAL SC SCH (22:00)
[2016-10-24] MEDS: EZETIMIBE 10 MG TABLET PO SCH (22:04)
[2016-10-24] MEDS: ATENOLOL 100 MG TABLET PO SCH (22:04)
[2016-10-24] MEDS: rOPINIRole HCL 0.5 MG TABLET PO SCH (22:05)
[2016-10-24] MEDS: SIMVASTATIN 20 MG TABLET PO SCH (22:05)
[2016-10-25] MEDS: RINGER'S SOLUTION,LACTATED 1,000 ML IV PRN ×3 (01:04→16:15)
[2016-10-25] MEDS: oxyCODONE HCL/ACETAMINOPHEN 1 TAB TABLET PO PRN ×2 (04:16→09:30)
[2016-10-25] MEDS: INSULIN LISPRO 100 UNITS/ML VIAL SC SCH ×4 (07:27→22:08)
[2016-10-25] MEDS ORDERED: GABAPENTIN 600 MG TABLET PO SCH ×2 (09:00→21:00)
[2016-10-25] MEDS: GABAPENTIN 300 MG CAPSULE PO SCH ×2 (09:11→22:03)
[2016-10-25] MEDS: amLODIPine BESYLATE 10 MG TABLET PO SCH (09:11)
[2016-10-25] MEDS: INSULIN GLARGINE,HUM.REC.ANLOG 100 UNITS/ML VIAL SC SCH ×2 (09:12→22:07)
[2016-10-25] MEDS: ASPIRIN 81 MG TABLET.DR PO SCH (09:12)
[2016-10-25] MEDS ORDERED: oxyCODONE HCL/ACETAMINOPHEN 1 TAB TABLET PO PRN (12:15)
--- NOTE | 2016-10-25 12:16 | PN ---
Subjective - Date and Time Seen Date: 10/25/16 Time: 12:13 Subjective Narrative: C/O headache. Pain medicine not helping. Objective Objective Narrative: Dressing clean/dry/intact JPs sanguinous - Vitals Vitals: Last Vital Signs Temp 36.3 C L 10/25/16 10:29 Pulse 60 10/25/16 10:29 Resp 18 10/25/16 10:29 BP 141/72 10/25/16 10:29 Pulse Ox 97 10/25/16 07:27 Assessment/Plan Plan Narrative: Need better glycemic control. BP up probably due to pain control issues Path is pending
[2016-10-25] MEDS: ENOXAPARIN SODIUM 40 MG/0.4 ML SYRG SC SCH (16:00)
[2016-10-25] MEDS ORDERED: FLUVOXAMINE MALEATE 300 MG PO SCH (21:00)
[2016-10-25] MEDS: rOPINIRole HCL 0.5 MG TABLET PO SCH (22:04)
[2016-10-25] MEDS: ATENOLOL 100 MG TABLET PO SCH (22:05)
[2016-10-25] MEDS: EZETIMIBE 10 MG TABLET PO SCH (22:05)
[2016-10-25] MEDS: SIMVASTATIN 20 MG TABLET PO SCH (22:05)
[2016-10-26] MEDS: RINGER'S SOLUTION,LACTATED 1,000 ML IV PRN (00:10)
[2016-10-26] MEDS: INSULIN LISPRO 100 UNITS/ML VIAL SC SCH ×2 (07:22→12:27)
[2016-10-26] MEDS ORDERED: Liraglutide [Victoza 2-Pak] 1.2 MG SQ SCH (09:00)
[2016-10-26] MEDS ORDERED: ENALAPRIL MALEATE 20 MG TABLET PO SCH (09:00)
[2016-10-26] MEDS: GABAPENTIN 300 MG CAPSULE PO SCH (09:15)
[2016-10-26] MEDS: ASPIRIN 81 MG TABLET.DR PO SCH (09:16)
[2016-10-26] MEDS: amLODIPine BESYLATE 10 MG TABLET PO SCH ×2 (09:29→13:05)
[2016-10-26] MEDS: INSULIN GLARGINE,HUM.REC.ANLOG 100 UNITS/ML VIAL SC SCH (09:35)
--- NOTE | 2016-10-26 10:28 | PN ---
Subjective - Date and Time Seen Date: 10/26/16 Time: 10:25 Subjective Narrative: No c/o. Pain under good management. Objective Objective Narrative: Glycemic control improved. Pain control improved. Dressing removed. Flaps viable. Drain under upper flap not functioning and therefore removed. Site covered with mepilex. - Vitals Vitals: Last Vital Signs Temp 36.3 C L 10/26/16 07:04 Pulse 60 10/26/16 09:15 Resp 18 10/26/16 07:04 BP 181/80 10/26/16 09:15 Pulse Ox 100 10/26/16 07:04 Assessment/Plan Plan Narrative: Home. Sponge baths until drain removed. FU 2 weeks
--- NOTE | 2016-10-26 10:36 | DS ---
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 She tolerated the procedure well. Path is pending. Postop we worked on glycemic control and pain management. She is discharged in improved condition. The upper flap's drain was not functioning and was pulled. She still has the other drain intact under the lower flap. She is to do sponge baths until the drain is out. She is to receive drain teaching. She is to call the office when drainage is less than 50 cc per day to have the drain pulled. After that she can shower. She does not require pain medication. She is to exercise the shoulder girdle and I gave her instruction on that. She is to follow up with me in 2 weeks. Procedures Performed: see notes below List Procedures: Inject blue dye. Total mastectomy. [place] lymph node biopsy. Discharge Disposition: Home self care Disposition: Home self-care Condition: Good Discharge Activity: Activity as tolerated Discharge Diet: General/regular food Referrals: Kristie Ronquillo DO [Primary Care Provider] - Complete Home Medications List: Complete Home Medication List: Aspirin [Aspirin Enteric Coated] 81 mg PO DAILY 07/25/12 Atenolol [Tenormin] 100 mg PO HS 07/25/12 Benazepril HCl [Lotensin] 80 mg PO DAILY 07/25/12 Ezetimibe [Zetia] 10 mg PO HS 07/25/12 Fluvoxamine Maleate [Luvox Cr] 300 mg PO HS 07/25/12 Insulin Lispro [Humalog] 18 unit SQ TID 07/25/12 Simvastatin [Zocor] 20 mg PO HS 07/25/12 Gabapentin 900 mg PO BID 09/09/13 Insulin Glargine,Hum.rec.anlog [Lantus] 70 units SC BID 10/22/14 rOPINIRole HCL [Requip] 0.5 mg PO HS 10/22/14 Gabapentin [Neurontin] 1,200 mg PO HS 02/02/15 Liraglutide [Victoza 2-Yeyo] 1.2 mg SQ DAILY 08/21/17 amLODIPine BESYLATE [Norvasc] 10 mg PO DAILY 10/23/16 metFORMIN HCL [Glucophage] 1,000 mg PO BIDWM 10/23/16
[2016-10-26 13:09] VITALS: BP 156/73
== END 2016-10-26 13:15 | disposition home or self-care (01) ==
LOC: AMB 08:28 → MS 14:51
PROVIDERS: ADMIT Specialist; ATTEND Specialist
PROC: C71L1ZZ Planar Nuclear Medicine Imaging of Upper Chest Lymphatics using Technetium 99m (Tc-99m) (ICD-10-PCS; 2016-10-24)
PROC: 0HTT0ZZ Resection of Right Breast, Open Approach (ICD-10-PCS; principal; 2016-10-24 11:20)
PROC: 07B80ZX Excision of Right Internal Mammary Lymphatic, Open Approach, Diagnostic (ICD-10-PCS; 2016-10-24 11:20)
DX: D05.11 Intraductal carcinoma in situ of right breast (principal)
CPT/HCPCS: 19307; 38525; 38900; 78195; 88307; 94660; 96372; 96374; 96375; 96376; A9541; G0378; J2405

== ENCOUNTER 2016-11-18 07:05 | Day surgery (SDC) | payer MEDICARE ==
[~2016-11-18 07:05] MED LIST: RINGER'S SOLUTION,LACTATED 1,000 ML IV PRN; ceFAZolin SODIUM 2 GM in DEXTROSE 5 % IN WATER 50 ML IV PRN
[2016-11-18] MEDS ORDERED: RINGER'S SOLUTION,LACTATED 1,000 ML IV ONE (07:42)
[2016-11-18] MEDS ORDERED: CLONIDINE HCL 0.1 MG TABLET PO SCH (08:15)
[2016-11-18] MEDS ORDERED: CLONIDINE HCL 0.1 MG TABLET PO ONE (08:18)
[2016-11-18] MEDS ORDERED: BUPIVACAINE HCL 50 ML VIAL IJ ONE (09:38)
--- NOTE | 2016-11-18 10:47 | OR ---
Operative Report - Dictated Report Narrative: Date: 11/18/2016 Preop dx: Non-healing surgical wound and wound seroma Postop dx: same Procedure: Wound irrigation. Placement of Cisco-Baptiste drain. Closure of non- healing surgical wound. Surgeon: Ed Westfall MD Anesthesia: MAC Specimens: none EBL: none Indication: Patient has a non-healing VALENTIN drain site that is leaking copious amounts of serous fluid. Description: The right chest was prepped and draped in a sterile fashion. The non-healing VALENTIN drain site at the lateral pectoral border of the upper flap was irrigated with betadine through a bulb syringe. The metal trocar of a VALENTIN drain was then placed through this defect and brought through the skin of the lower flap at the anterior axillary line. The VALENTIN was secured to the skin with silk. The VALENTIN drain site was then closed with a running interlocked stitch of 2-0 Ethilon. Sterile dressings were applied and the patient was discharged from the operating room in stable condition without apparent complications.
[2016-11-18 12:00] VITALS: BP 100/61
== END 2016-11-18 07:06 | disposition home or self-care (01) ==
LOC: AMB 07:05
PROVIDERS: ATTEND Specialist
PROC: 0W9830Z Drainage of Chest Wall with Drainage Device, Percutaneous Approach (ICD-10-PCS; principal; 2016-11-18 09:00)
DX: I97.622 Postprocedural seroma of a circulatory system organ or structure following other procedure (principal); T81.31XA Disruption of external operation (surgical) wound, not elsewhere classified, initial encounter; I12.9 Hypertensive chronic kidney disease with stage 1 through stage 4 chronic kidney disease, or unspecified chronic kidney disease; E11.65 Type 2 diabetes mellitus with hyperglycemia; E11.22 Type 2 diabetes mellitus with diabetic chronic kidney disease; N18.9 Chronic kidney disease, unspecified; E78.5 Hyperlipidemia, unspecified; G47.33 Obstructive sleep apnea (adult) (pediatric); J45.909 Unspecified asthma, uncomplicated; F41.9 Anxiety disorder, unspecified; F32.9 Major depressive disorder, single episode, unspecified; Z87.891 Personal history of nicotine dependence; Z68.41 Body mass index [BMI] 40.0-44.9, adult

== ENCOUNTER 2016-12-26 09:21 | Day surgery (SDC) | payer MEDICARE ==
[2016-12-26] MEDS ORDERED: RINGER'S SOLUTION,LACTATED 1,000 ML IV ONE (11:00)
[2016-12-26] MEDS ORDERED: ceFAZolin SODIUM 1 GM VIAL IJ ONE (11:20)
[2016-12-26] MEDS ORDERED: BACITRACIN 50,000 UNITS VIAL IR ONE (11:45)
[2016-12-26] MEDS ORDERED: BUPIVACAINE HCL 50 ML VIAL IJ ONE (11:54)
[2016-12-26] MEDS ORDERED: RINGER'S SOLUTION,LACTATED 1,000 ML IV PRN (12:23)
[2016-12-26] MEDS ORDERED: oxyCODONE HCL/ACETAMINOPHEN 1 TAB TABLET PO ONE (13:00)
[2016-12-26 14:27] VITALS: BP 130/73
--- NOTE | 2016-12-26 15:46 | OR ---
Operative Report - Dictated Report Narrative: OPERATIVE REPORT DATE OF OPERATION: 12/26/2016 PREOPERATIVE DIAGNOSIS: Infection of right mastectomy incision POSTOPERATIVE DIAGNOSIS: Same (status post wound VAC placement) OPERATION: Opening of right mastectomy incision, irrigation, debridement, and placement of wound VAC SURGEON: Annika Roman MD ANESTHESIA: MAC/local Randall Malin CRNA INDICATIONS FOR PROCEDURE: The patient is a 61-year-old female who had a right total mastectomy with sentinel lymph node dissection for multifocal infiltrating ductal carcinoma of the right breast performed on 10/24/2016. She initially had problems with VALENTIN drain function and collections under the flaps. She underwent replacement of VALENTIN drain on 11/18/2016. She continues to have drainage from an open area at the medial and of the incision. There is a large cavity under the flaps which cannot be adequately addressed with foam. FINDINGS: Essentially free-floating upper and lower mastectomy flaps. Resulting wound is 15 cm wide, 2 cm long, 1 cm deep, with 4 cm circumferential undermining. The wound involves skin and subcutaneous tissue down to the muscle of the chest wall. NARRATIVE OF PROCEDURE: The patient was identified in the holding area and the surgical site confidently identified and marked. Prior to the administration of anesthetic, a multidisciplinary timeout was observed. The patient was placed supine, SCDs were applied, and 2 g of intravenous Ancef administered. After the administration of intravenous sedation, the patient's right chest was prepped with Betadine solution and the area around the mastectomy incision isolated with 4 sterile towels. The remainder the patient was covered with a sterile disposable drape. The wound at the medial end of the incision was explored with a hemostat demonstrating extension medially, superiorly, inferiorly, and laterally all the way into the axilla. The edges of the incision were then infiltrated with 0.5% Marcaine. A forefinger was inserted under the incision which was then opened sharply with a scalpel, first to the medial end, and then laterally to the furthest extent of the cavity in the anterior axilla. The edges of the incision were then treated with cautery to achieve hemostasis. The base of the wound was then nonselectively debrided with gauze and areas of thicker exudate were removed with a hemostat. The wound was then irrigated with 1.5 L of bacitracin containing saline. The wound appeared clean and hemostatic. After receiving a correct sponge needle and instrument count, attention was turned to the application of a wound VAC. Black wound VAC foam was then cut and fashioned to fit the cavity and inserted in the wound. The surrounding skin was treated with Skin-Prep. The adhesive plastic was in place to achieve a circumferential seal. A window was created over the foam and the suction device fitted. The wound VAC was connected to a suction container and vacuum was confirmed with shrinkage of the foam and no leaks. The operative procedure was terminated at this point. The patient tolerated the anesthetic and procedure well without complication. There was no measurable blood loss. No specimens were submitted. The patient was transferred back to the ambulatory surgery area awake and in stable condition. The patient remained stable throughout a period of postoperative observation. She denied discomfort, was able to take po intake, and was up without assistance. I shared the operative findings with her and her . She was discharged home with instructions to keep the current dressing dry and intact and into the canister on the wound VAC as necessary. She has phone numbers to call if needed for questions or concerns. Follow-up appointment in the wound center was made for 01/29/2017. Reviewed and electronically signed
== END 2016-12-26 09:22 | disposition home or self-care (01) ==
LOC: AMB 09:21
PROVIDERS: ATTEND Surgery
PROC: 0J9600Z Drainage of Chest Subcutaneous Tissue and Fascia with Drainage Device, Open Approach (ICD-10-PCS; 2016-12-26)
PROC: 0JB60ZZ Excision of Chest Subcutaneous Tissue and Fascia, Open Approach (ICD-10-PCS; principal; 2016-12-26 11:00)
DX: T81.4XXA Infection following a procedure, initial encounter (principal); C50.911 Malignant neoplasm of unspecified site of right female breast; I10 Essential (primary) hypertension; E11.9 Type 2 diabetes mellitus without complications; E78.5 Hyperlipidemia, unspecified; J45.909 Unspecified asthma, uncomplicated; M19.90 Unspecified osteoarthritis, unspecified site; Z87.891 Personal history of nicotine dependence; Z68.39 Body mass index [BMI] 39.0-39.9, adult

== ENCOUNTER 2017-01-03 18:55 | Emergency (ER) | payer MEDICARE ==
[2017-01-03 19:10] VITALS: BP 138/66
--- NOTE | 2017-01-03 19:15 | PN ---
Dictated Progress Note - Date and Time Seen: Date: 01/03/17 Time: 19:12 - Progress Note Narrative: Vital Signs - Last Taken Temp 36.4 C L 01/03/17 19:04 Pulse 88 01/03/17 19:04 Resp 14 01/03/17 19:04 BP 138/66 01/03/17 19:04 Pulse Ox 97 01/03/17 19:04 She has a wound vac on her mastectomy incision, followed through the wound center. The vacuum tubing come off. PE: dressing intact, just the disc is off New suction disc placed with good suction seal and collapse of foam She may go home, empty canister as usual and call wound center in AM to have dressing checked.
--- NOTE | 2017-01-03 19:26 | ERNOTE ---
Medical Problem HPI - Narrative Date of Service: 01/03/17 - General Chief Complaint: General Assessment Time Seen by Provider: 01/03/17 19:15 Source: patient - Immun/Allergies/Home Medications Immunizations: IMMUNIZATION HX Immunizations Up to Date Yes History of Influenza Vaccine No Hx Pneumococcal Vaccination No Allergies/Adverse Reactions: Allergies No Known Allergies Allergy (Verified 10/24/16 09:02) Home Medications: HOME MEDICATIONS Aspirin [Aspirin Enteric Coated] 81 mg PO DAILY 07/25/12 [Last Taken Unknown] Atenolol [Tenormin] 100 mg PO HS 07/25/12 [Last Taken Unknown] Benazepril HCl [Lotensin] 80 mg PO DAILY 07/25/12 [Last Taken 02/05/15 08:00] Ezetimibe [Zetia] 10 mg PO HS 07/25/12 [Last Taken Unknown] Fluvoxamine Maleate [Luvox Cr] 300 mg PO HS 07/25/12 [Last Taken Unknown] Insulin Lispro [Humalog] 18 unit SQ TID PRN 07/25/12 [Last Taken Unknown] Simvastatin [Zocor] 20 mg PO HS 07/25/12 [Last Taken Unknown] Gabapentin 900 mg PO BID 09/09/13 [Last Taken Unknown] Insulin Glargine,Hum.rec.anlog [Lantus] 70 units SC BID 10/22/14 [Last Taken Unknown] rOPINIRole HCL [Requip] 0.5 mg PO HS 10/22/14 [Last Taken Unknown] Gabapentin [Neurontin] 1,200 mg PO HS 02/02/15 [Last Taken Unknown] Liraglutide [Victoza 2-Yeyo] 1.2 mg SQ DAILY 10/23/16 [Last Taken Unknown] amLODIPine BESYLATE [Norvasc] 10 mg PO DAILY 10/23/16 [Last Taken Unknown] metFORMIN HCL [Glucophage] 1,000 mg PO BIDWM 10/23/16 [Last Taken Unknown] Ibuprofen [Motrin] 800 mg PO Q6H PRN 11/17/16 [Last Taken Unknown] Terazosin HCl [Hytrin] 1 mg PO HS 11/17/16 [Last Taken Unknown] Zolpidem Tartrate [Ambien] 10 mg PO HS 11/17/16 [Last Taken Unknown] Ondansetron [Zofran Odt] 8 mg PO BID 12/14/16 [Last Taken Unknown] HYDROcodone/ACETAMINOPHEN [[place] 5-325] 1 each PO Q6H PRN #20 tablet 12/29/16 [ Last Taken Unknown] - History of Present History Narrative: 61-year-old female presents to the emergency room related to her wound vac tube falling out. Date (Duration): 01/03/17 Timing: constant Severity: mild Review of Systems - Narrative Narrative: patient wound vac tube fell out after it was placed today by Dr Izquierdo - Review of Systems Constitutional: Present: no symptoms reported EYE: Present: no symptoms reported ENT: Present: no symptoms reported Respiratory: Present: no symptoms reported Cardiology: Present: no symptoms reported Gastrointestinal/Abdominal: Present: no symptoms reported Genitourinary: Present: no symptoms reported Musculoskeletal: Present: no symptoms reported Skin: Present: no symptoms reported Neurological: Present: no symptoms reported Endocrine: Present: no symptoms reported Hematologic/Lymphatic: Present: no symptoms reported Psych: Present: no symptoms reported All Other Systems: All systems neg except as marked - Patient's Past Medical History Patient History - Medical: Anxiety, Diabetes Type 2, Depression, Osteoarthritis , Renal Disease, Renal Failure, Other Patient History - Cardiac/Respiratory: Asthma, Hypertension, Hyperlipidemia, CPAP/BiPAP Home Use, Sleep Apnea, Other Patient History - Cancer: Breast, Surgical Treatment Patient History - Surgical Procedures: Cancer Surgery, Total Knee Replacement, Other Patient History - Other: None - Family History Mother Family History - Medical: , Anxiety Family History - Cardiac/Respiratory: Hypertension, Other Family History - Cancer: No pertinent family hx Father Family History - Medical: , Alcohol Abuse Family History - Cardiac/Respiratory: CVA/Stroke, Hypertension Family History - Cancer: No pertinent family hx Brother Family History - Medical: , Diabetes Type 2, Other Family History - Cardiac/Respiratory: No pertinent hx Family History - Cancer: No pertinent family hx - Social History Living Situations: spouse Abuse History: No History of abuse Psych History: Hx of Anxiety, Hx of Depression, Current tx/ever been on anti- depressants or anti-anxiety meds Smoking Status: Never smoker Have you smoked in the past 12 months: No Do you dip or chew tobacco: No Alcohol Use: none Drug Use: none - Immunizations Immunizations Up to Date: Yes Hx Pneumococcal Vaccination: No History of Influenza Vaccine: No Physical Exam - Physical Exam Narrative: wound vac tub fell out. Dr Izquierdo placed wound vac tub back in place General Appearance: Present: wd/wn, alert, no apparent distress Head Exam: Present: normal inspection, no evidence of injury Ears, Nose, Throat: Present: normal ENT inspection, normal pharynx Neck: Present: normal inspection, nontender Respiratory: Present: no respiratory distress, normal breath sounds, no accessory muscle use, chest nontender, lungs clear Cardiovascular/Chest: Present: regular rate, rhythm, no murmur, normal peripheral pulses Gastrointestinal/Abdominal: Present: normal bowel sounds, nontender, nondistended, soft, no organomegaly Back Exam: Present: normal inspection, normal range of motion, no vertebral tenderness Extremity Exam: Present: normal inspection, normal range of motion, no edema Neurological Exam: Present: alert, oriented, normal mood/affect, no motor/ sensory deficits Skin Exam: Present: normal color, warm/dry Lymphatic Exam: Present: no adenopathy ED Progress - Date and Time Seen: Date and Time: 01/03/17 19:20 wound vac in proper working order - Vital Signs Vital Signs: Vital Signs 01/03/17 19:04 Temperature 36.4 C L Pulse Rate 88 Respiratory 14 Rate Blood Pressure 138/66 O2 Sat by Pulse 97 Oximetry - Progress/Reassessment Chief Complaint: General Assessment Plan - Plan Plan: Dr izquierdo here to see patient, she re inserted wound vac tube. patient has a follow up apt with him scheduled Departure Clinical Impression: Post-operative complication Qualifiers: Surgical complication system/body Area: skin Surgical complication type: unspecified Procedure type: non-dermatologic Qualified Code(s): L76.82 - Other postprocedural complications of skin and subcutaneous tissue - Departure Disposition: Home Follow Up Needed Condition: Stable Instructions: Mechanical Wound Debridement Additional Instructions: Continue any previous medications as directed. Make sure to keep your follow- up appointment with Dr. Izquierdo. Return to the emergency room if your wound vac becomes disconnected or becomes detached again. Referrals: Annika Izquierdo MD [Primary Care Provider] -
== END 2017-01-03 19:27 | disposition home or self-care (01) ==
LOC: ER 18:55
DX: L76.82 Other postprocedural complications of skin and subcutaneous tissue (principal); Z90.10 Acquired absence of unspecified breast and nipple

== ENCOUNTER 2017-04-14 15:37 | Emergency (ER) | payer MEDICARE ==
[2017-04-14 15:44] VITALS: BP 167/100
[2017-04-14] MEDS ORDERED: KETOROLAC TROMETHAMINE 60 MG/2 ML VIAL IM ONE ×2 (16:08→16:10)
[2017-04-14] MEDS ORDERED: PROMETHAZINE HCL 50 MG/ML AMPUL IM ONE ×2 (16:08→16:09)
--- NOTE | 2017-04-14 16:11 | ERNOTE ---
Headache ER HPI - Narrative Date of Service: 04/14/17 - General Presenting Symptoms: "migraine" Time Seen by Provider: 04/14/17 15:57 Source: patient, family, RN notes reviewed Exam Limitations: no limitations - Immun/Allergies/Home Medications Immunizations: IMMUNIZATION HX Immunizations Up to Date No: unsure History of Influenza Vaccine No Hx Pneumococcal Vaccination No Allergies/Adverse Reactions: Allergies No Known Allergies Allergy (Verified 04/14/17 15:43) Home Medications: HOME MEDICATIONS Aspirin [Aspirin Enteric Coated] 81 mg PO DAILY 07/25/12 [Last Taken Unknown] Atenolol [Tenormin] 100 mg PO HS 07/25/12 [Last Taken Unknown] Benazepril HCl [Lotensin] 80 mg PO DAILY 07/25/12 [Last Taken 02/05/15 08:00] Ezetimibe [Zetia] 10 mg PO HS 07/25/12 [Last Taken Unknown] Fluvoxamine Maleate [Luvox Cr] 300 mg PO HS 07/25/12 [Last Taken Unknown] Insulin Lispro [Humalog] 18 unit SQ TID PRN 07/25/12 [Last Taken Unknown] Simvastatin [Zocor] 20 mg PO HS 07/25/12 [Last Taken Unknown] Gabapentin 900 mg PO BID 09/09/13 [Last Taken Unknown] Insulin Glargine,Hum.rec.anlog [Lantus] 70 units SC BID 10/22/14 [Last Taken Unknown] rOPINIRole HCL [Requip] 0.5 mg PO HS 10/22/14 [Last Taken Unknown] Gabapentin [Neurontin] 1,200 mg PO HS 02/02/15 [Last Taken Unknown] Liraglutide [Victoza 2-Yeyo] 1.2 mg SQ DAILY 10/23/16 [Last Taken Unknown] amLODIPine BESYLATE [Norvasc] 10 mg PO DAILY 10/23/16 [Last Taken Unknown] metFORMIN HCL [Glucophage] 1,000 mg PO BIDWM 10/23/16 [Last Taken Unknown] Ibuprofen [Motrin] 800 mg PO Q6H PRN 11/17/16 [Last Taken Unknown] Terazosin HCl [Hytrin] 1 mg PO HS 11/17/16 [Last Taken Unknown] Zolpidem Tartrate [Ambien] 10 mg PO HS 11/17/16 [Last Taken Unknown] Ondansetron [Zofran Odt] 8 mg PO BID 12/14/16 [Last Taken Unknown] HYDROcodone/ACETAMINOPHEN [[place] 5-325] 1 each PO Q6H PRN #20 tablet 12/29/16 [ Last Taken Unknown] Fluconazole [Diflucan] 150 mg PO DAILY #3 tablet 01/05/17 [Last Taken Unknown] Linezolid 600 mg PO BID #20 tablet 01/08/17 [Last Taken Unknown] Amox Tr/Potassium Clavulanate [Augmentin 875-125 Tablet] 875 mg PO Q12H #20 tab 03/04/17 [Last Taken Unknown] predniSONE [Prednisone] 2 tab PO DAILY #14 tab 03/04/17 [Last Taken Unknown] - History of Present Illness Narrative: Lesly is a 61 year old female brought to the ED by her for a migraine that began a week ago. She reports having similar headaches in the past. She has been taking ibuprofen without improvement. Timing of Headache: gradual, constant, worse - this afternoon Context Headache: Present: new onset Quality: Present: throbbing Severity Maximum: Present: severe Severity-Currently: Present: severe Headache frequency: Present: frequent headaches, similar to previous headache Exacerbated by:: Reports: light Prior Treament: Reports: similar symptoms before. Denies: recently seen Review of Systems - Review of Systems Constitutional: Present: recent illness. Absent: fever, chills EYE: Absent: eye pain, vision changes ENT: Absent: ear pain, nose congestion, sore throat Respiratory: Present: cough. Absent: shortness of breath Cardiology: Absent: chest pain, syncope Gastrointestinal/Abdominal: Present: nausea. Absent: vomiting, diarrhea Genitourinary: Present: no symptoms reported Musculoskeletal: Present: no symptoms reported Skin: Absent: rash, lesions Neurological: Present: headache. Absent: dizziness/light-headedness Endocrine: Present: no symptoms reported Hematologic/Lymphatic: Present: no symptoms reported Psych: Present: no symptoms reported - Patient's Past Medical History Patient History - Medical: Diabetes Type 2 Insulin Dependent, Migraines, Obesity , Renal Disease Patient History - Cardiac/Respiratory: Bronchitis, Hypertension, Pneumonia, CPAP /BiPAP Home Use, Sleep Apnea Patient History - Cancer: Breast Patient History - Surgical Procedures: Cancer Surgery, Total Knee Replacement, Other, Orthopedic Patient History - Other: None LMP (females 10-50): Menopausal - Family History Mother Family History - Medical: , Anxiety Family History - Cardiac/Respiratory: Hypertension, Other Family History - Cancer: No pertinent family hx Father Family History - Medical: , Alcohol Abuse Family History - Cardiac/Respiratory: CVA/Stroke, Hypertension Family History - Cancer: No pertinent family hx Brother Family History - Medical: , Diabetes Type 2, Other Family History - Cardiac/Respiratory: No pertinent hx Family History - Cancer: No pertinent family hx - Social History Living Situations: home Abuse History: No History of abuse Psych History: Hx of Anxiety, Hx of Depression, Current tx/ever been on anti- depressants or anti-anxiety meds Smoking Status: Never smoker Have you smoked in the past 12 months: No Do you dip or chew tobacco: No Alcohol Use: none Drug Use: none - Immunizations Immunizations Up to Date: No - unsure Hx Pneumococcal Vaccination: No History of Influenza Vaccine: No Physical Exam - Physical Exam General Appearance: Present: wd/wn, alert, obese, other - In no acute distress but appears uncomfortable Head Exam: Present: normal inspection, no evidence of injury. Absent: swelling , tenderness Eye Exam: Normal inspection: bilateral, PERRL: bilateral, EOMI: bilateral Ears, Nose, Throat: Present: normal ENT inspection, normal pharynx Neck: Present: normal inspection, nontender, supple Respiratory: Present: no respiratory distress, normal breath sounds, no accessory muscle use, lungs clear Cardiovascular/Chest: Present: regular rate, rhythm, no murmur, normal peripheral pulses Extremity Exam: Present: normal inspection, normal range of motion, no edema Neurological Exam: Present: alert, oriented, normal mood/affect, no motor/ sensory deficits Skin Exam: Present: normal color, warm/dry ED Progress - Vital Signs Patient's Vital Signs:: I have reviewed the patient's vital signs. Vital Signs: Vital Signs 04/14/17 15:37 Temperature 36 C L Pulse Rate 69 Respiratory 16 Rate Blood Pressure 167/100 O2 Sat by Pulse 97 Oximetry - Progress/Reassessment Chief Complaint: Headache Progress:: Improved Departure Clinical Impression: Migraine headache Qualifiers: Migraine type: unspecified Status migrainosus presence: without status migrainosus Intractability: not intractable Qualified Code(s): G43.909 - Migraine, unspecified, not intractable, without status migrainosus - Departure Disposition: Home self-care Condition: Stable Instructions: Migraine Headache, [id number] Referrals: Kristie Ronquillo DO [Primary Care Provider] -
== END 2017-04-14 16:22 | disposition home or self-care (01) ==
LOC: ER 15:37
DX: G43.909 Migraine, unspecified, not intractable, without status migrainosus (principal); Z85.3 Personal history of malignant neoplasm of breast

== ENCOUNTER 2017-06-15 08:47 | Observation (INO) ==
[2017-06-15] MEDS ORDERED: NORMAL SALINE 1,000 ML IV ONE (09:12)
[2017-06-15] MEDS ORDERED: ONDANSETRON HCL/PF 2 MG/ML VIAL IV ONE (09:12)
--- NOTE | 2017-06-15 09:19 | ERNOTE ---
Medical Problem HPI - Narrative Date of Service: 06/15/17 - General Chief Complaint: Flu Symptoms Time Seen by Provider: 06/15/17 09:06 Source: patient Exam Limitations: no limitations - Immun/Allergies/Home Medications Immunizations: IMMUNIZATION HX Immunizations Up to Date Yes History of Influenza Vaccine No Hx Pneumococcal Vaccination No Allergies/Adverse Reactions: Allergies No Known Allergies Allergy (Verified 06/15/17 08:57) Home Medications: HOME MEDICATIONS Aspirin [Aspirin Enteric Coated] 81 mg PO DAILY 07/25/12 [Last Taken Unknown] Benazepril HCl [Lotensin] 80 mg PO DAILY 07/25/12 [Last Taken 02/05/15 08:00] Fluvoxamine Maleate [Luvox Cr] 300 mg PO HS 07/25/12 [Last Taken Unknown] Insulin Lispro [Humalog] 18 unit SQ TID PRN 07/25/12 [Last Taken Unknown] Simvastatin [Zocor] 20 mg PO HS 07/25/12 [Last Taken Unknown] Gabapentin 900 mg PO BID 09/09/13 [Last Taken Unknown] Insulin Glargine,Hum.rec.anlog [Lantus] 70 units SC BID 10/22/14 [Last Taken Unknown] rOPINIRole HCL [Requip] 0.5 mg PO HS 10/22/14 [Last Taken Unknown] Gabapentin [Neurontin] 1,200 mg PO HS 02/02/15 [Last Taken Unknown] amLODIPine BESYLATE [Norvasc] 10 mg PO DAILY 10/23/16 [Last Taken Unknown] metFORMIN HCL [Glucophage] 1,000 mg PO BIDWM 10/23/16 [Last Taken Unknown] Ibuprofen [Motrin] 800 mg PO Q6H PRN 11/17/16 [Last Taken Unknown] Terazosin HCl [Hytrin] 1 mg PO HS 11/17/16 [Last Taken Unknown] Zolpidem Tartrate [Ambien] 10 mg PO HS 11/17/16 [Last Taken Unknown] Ondansetron [Zofran Odt] 8 mg PO BID 12/14/16 [Last Taken Unknown] Linezolid 600 mg PO BID #20 tablet 01/08/17 [Last Taken Unknown] - History of Present History Narrative: Patient presents to the ED for 5 days of illness. She relates cough, sore throat, recurrent vomiting and non-bloody diarrhea. She has been vomiting 3-4 times per day and having watery diarrhea about the same. No CP or SOB. She gets some occasional upper abdominal cramping but this comes and goes with the vomiting. No localizing pain in the abdomen right now. No CP or SOB. has been feeling sick too. Patient has body aches. She is beginning to feel dehydrated. Severe generalized weakness. Timing: constant Severity: moderate Modifying Factors - (Improves): Present: other - nothign Modifying Factors - (Worsens): Present: other - nothing Review of Systems - Review of Systems Constitutional: Present: chills EYE: Present: no symptoms reported ENT: Present: nose congestion, sore throat Respiratory: Present: cough. Absent: shortness of breath Cardiology: Absent: chest pain Gastrointestinal/Abdominal: Present: See HPI, vomiting, diarrhea Genitourinary: Absent: dysuria Musculoskeletal: Present: other - myalgias Skin: Absent: rash Neurological: Absent: headache, weakness - Patient's Past Medical History Patient History - Medical: Diabetes Type 2 Insulin Dependent, Migraines, Obesity , Renal Disease Patient History - Cardiac/Respiratory: Bronchitis, Hypertension, Pneumonia, CPAP /BiPAP Home Use, Sleep Apnea Patient History - Cancer: Breast Patient History - Surgical Procedures: Cancer Surgery, Total Knee Replacement, Other, Orthopedic Patient History - Other: None - Family History Mother Family History - Medical: , Anxiety Family History - Cardiac/Respiratory: Hypertension, Other Family History - Cancer: No pertinent family hx Father Family History - Medical: , Alcohol Abuse Family History - Cardiac/Respiratory: CVA/Stroke, Hypertension Family History - Cancer: No pertinent family hx Brother Family History - Medical: , Diabetes Type 2, Other Family History - Cardiac/Respiratory: No pertinent hx Family History - Cancer: No pertinent family hx - Social History Living Situations: spouse Abuse History: No History of abuse Psych History: Hx of Anxiety, Hx of Depression, Current tx/ever been on anti- depressants or anti-anxiety meds Smoking Status: Former smoker Have you smoked in the past 12 months: No Do you dip or chew tobacco: No Alcohol Use: none Drug Use: none - Immunizations Immunizations Up to Date: Yes Hx Pneumococcal Vaccination: No History of Influenza Vaccine: No Physical Exam - Physical Exam General Appearance: Present: alert, no apparent distress Head Exam: Present: normal inspection, no evidence of injury Eye Exam: Normal inspection: bilateral, PERRL: bilateral Ears, Nose, Throat: Present: normal ENT inspection, other - 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 Absent: pharyngeal erythema, pharyngeal swelling, tonsillar swelling, dry mucous membranes Neck: Present: normal inspection, other - no meningeal signs Respiratory: Present: no respiratory distress, normal breath sounds, no accessory muscle use, lungs clear Cardiovascular/Chest: Present: regular rate, rhythm, normal peripheral pulses Gastrointestinal/Abdominal: Present: normal bowel sounds, nondistended, soft, no organomegaly, other - very mild epigastric tenderness to palpation. No guarding or rebound. No peritoneal signs Back Exam: Absent: CVA tenderness (R), CVA tenderness (L) Extremity Exam: Present: normal inspection Neurological Exam: Present: alert, normal mood/affect, no motor/sensory deficits , other - generalized weakness noted. Absent: motor weakness Skin Exam: Present: normal color, warm/dry ED Progress - Results and Orders Patient's Lab Results:: I have reviewed the patient's lab results. - Vital Signs Patient's Vital Signs:: I have reviewed the patient's vital signs. Vital Signs: Vital Signs 06/15/17 08:53 Temperature 36.4 C Pulse Rate 68 Respiratory 16 Rate Blood Pressure 129/80 O2 Sat by Pulse 92 Oximetry - X-Ray X-Ray #1 X-Ray: chest Interpretation: Interp. by me X-ray Comments: I reviewed official radiology report - Progress/Reassessment Chief Complaint: Flu Symptoms Progress Note-Subjective: 06/15/17 11:41 IV fluids given. IV potassium given. Patient felt too weak and dehydrated to go home. She did have sats 87% RA noted, therefore oxygen supplemental given. D/W Dr Ronquillo who will admit. Departure Clinical Impression: Influenza B, Dehydration, Hypokalemia, Generalized weakness - Departure Disposition: Still a patient Condition: Stable Referrals: Kristie Ronquillo DO [Primary Care Provider] -
[2017-06-15] MEDS ORDERED: ONDANSETRON HCL/PF 2 MG/ML VIAL ONE (09:34)
[2017-06-15 09:56] LABS: Hematocrit 40.9 % (37.0-47.0); Hemoglobin 14.6 gm/dL (12.5-16.0); Mean Cell Volume 86.1 fl (78-100); Mean Corpuscular Hemoglobin 30.7 pg (27-31); Mean Corpuscular Hgb Conc 35.7 g/dl (32-36); Mean Platelet Volume 11.6 fl (6.0-9.5); Neutrophil # 2.3 K/mm3 (1.3-6.0); Neutrophil % 67.1 % (42-75.0); Platelet Count 189 K/mm3 (150-450); Red Blood Count 4.75 M/mm3 (4.2-5.4); Red Cell Distribution Width 12.5 % (11.5-14.0); White Blood Count 3.4 K/mm3 (4.0-10.5)
[2017-06-15 10:12] LABS: Albumin * 2.4 gm/dl (3.4-5.0); Anion Gap 15.6 mmol/L (6.8-13.8); BUN/Creatinine Ratio 15.7 (9.0-21.6); Bilirubin, Total 0.5 mg/dL (0.0-1.1); Ca. Corrected For Albumin 10.2 mg/dL (8.4-10.2); Calcium * 9.2 mg/dL (7.9-10.9); Carbon Dioxide 23.4 mmol/L (24-32.6); Total Protein 6.4 gm/dL (6.2-8.2)
[2017-06-15 10:19] LABS: Urine Bilirubin Negative (NEGATIVE); Urine Blood 25 /ul (NEGATIVE); Urine Ketone 15 mg/dL (NEGATIVE); Urine Nitrite Negative (NEGATIVE); Urine Protein >=300 mg/dL (NEGATIVE); Urine Specific Gravity 1.025 SP.GR. (1.005-1.010); Urine Urobilinogen Normal (NORMAL)
[2017-06-15 10:35] LABS: Urine Appearance Cloudy (CLEAR); Urine Color Yellow; Urine RBC 0-5 /hpf (0-5); Urine WBC 0-5 /hpf (0-5)
[2017-06-15 10:36] LABS: Urine Amorphous Sediment TRACE (NONE-FEW); Urine Bacteria TRACE; Urine Hyaline Cast TRACE /LPF; Urine Mucus TRACE; Urine Renal Epithelial Cell TRACE /hpf
[2017-06-15] MEDS ORDERED: POTASSIUM CHLORIDE IN WATER 100 ML IV ONE (10:48)
[2017-06-15] MEDS ORDERED: INSULIN LISPRO 100 UNITS/ML VIAL SC PRN (12:41)
[2017-06-15] MEDS ORDERED: ONDANSETRON HCL/PF 2 MG/ML VIAL IV PRN (12:50)
[2017-06-15] MEDS ORDERED: ACETAMINOPHEN 500 MG TABLET PO PRN (12:51)
[2017-06-15] MEDS ORDERED: MORPHINE SULFATE 2 MG/ML DISP.SYRIN IV PRN (12:51)
[2017-06-15] MEDS ORDERED: POTASSIUM CHLORIDE 20 MEQ TABLET.SA PO ONE ×2 (12:52→14:45)
[2017-06-15] MEDS: ENOXAPARIN SODIUM 100 MG/ML SYRG SC SCH (14:35)
[2017-06-15] MEDS: OSELTAMIVIR PHOSPHATE 75 MG CAPSULE PO SCH ×2 (14:39→21:38)
[2017-06-15] MEDS: HYDROcodone/ACETAMINOPHEN 1 EACH TABLET PO PRN ×2 (15:07→20:18)
[2017-06-15] MEDS: RINGER'S SOLUTION,LACTATED 1,000 ML IV PRN ×2 (15:10→21:56)
[2017-06-15] MEDS: INSULIN LISPRO 100 UNITS/ML VIAL SC SCH ×2 (17:25)
[2017-06-15] MEDS ORDERED: ZOLPIDEM TARTRATE 10 MG TABLET PO SCH (21:00)
[2017-06-15] MEDS ORDERED: TERAZOSIN HCL 1 MG CAPSULE PO SCH (21:00)
[2017-06-15] MEDS ORDERED: GABAPENTIN 300 MG CAPSULE PO SCH (21:00)
[2017-06-15] MEDS ORDERED: FLUVOXAMINE MALEATE 300 MG PO SCH (21:00)
[2017-06-15] MEDS ORDERED: GABAPENTIN 600 MG TABLET PO SCH (21:00)
[2017-06-15] MEDS ORDERED: rOPINIRole HCL 0.5 MG TABLET PO SCH (21:00)
[2017-06-15] MEDS ORDERED: ASPIRIN 81 MG TABLET.DR PO SCH (21:00)
[2017-06-15] MEDS ORDERED: SIMVASTATIN 20 MG TABLET PO SCH (21:00)
[2017-06-15] MEDS: INSULIN GLARGINE,HUM.REC.ANLOG 100 UNITS/ML VIAL SC SCH (21:55)
[2017-06-16] MEDS: ENOXAPARIN SODIUM 100 MG/ML SYRG SC SCH ×2 (00:46→13:07)
[2017-06-16] MEDS: RINGER'S SOLUTION,LACTATED 1,000 ML IV PRN (04:45)
[2017-06-16] MEDS ORDERED: LEVOTHYROXINE SODIUM 75 MCG TABLET PO SCH ×2 (07:00→11:00)
[2017-06-16 07:07] LABS: Albumin * 1.8 gm/dl (3.4-5.0); BUN/Creatinine Ratio 14.7 (9.0-21.6); Bilirubin, Total 0.3 mg/dL (0.0-1.1); Ca. Corrected For Albumin 9.4 mg/dL (8.4-10.2); Carbon Dioxide 27.4 mmol/L (24-32.6); Potassium 3.4 mmol/L (3.4-4.6)
[2017-06-16] MEDS: GABAPENTIN 300 MG CAPSULE PO SCH ×2 (07:32→11:43)
[2017-06-16] MEDS: INSULIN LISPRO 100 UNITS/ML VIAL SC SCH ×4 (07:33→13:06)
[2017-06-16] MEDS ORDERED: amLODIPine BESYLATE 10 MG TABLET PO SCH (09:00)
[2017-06-16] MEDS ORDERED: ASPIRIN 81 MG TABLET.DR PO SCH (09:00)
[2017-06-16] MEDS: OSELTAMIVIR PHOSPHATE 75 MG CAPSULE PO SCH (09:12)
[2017-06-16] MEDS ORDERED: INSULIN GLARGINE,HUM.REC.ANLOG 100 UNITS/ML VIAL SC SCH (09:36)
[2017-06-16] MEDS: INSULIN GLARGINE,HUM.REC.ANLOG 100 UNITS/ML VIAL SC SCH (09:50)
--- NOTE | 2017-06-16 10:51 | HP ---
Chief Complaint - Chief Complaint Date of Service: 06/15/17 Time of Service: 12:40 Chief Complaint: "Feel like crap" History of Present Illness: The patient presented to the emergency department with complaints of cough, sore throat, nausea and vomiting and watery diarrhea. The patient also complains of severe generalized weakness and fatigue, body aches, fever and chills. She states that these symptoms have been going on for approximately 5 days. She denies any abdominal pain. She denies any urinary symptoms. Of note , the patient's has had similar complaints and symptoms recently as well. - Patient's Past Medical History Patient History - Medical: Diabetes Type 2 Insulin Dependent, Migraines, Obesity , Renal Disease Patient History - Cardiac/Respiratory: Bronchitis, Hypertension, Pneumonia, CPAP /BiPAP Home Use, Sleep Apnea Patient History - Cancer: Breast Patient History - Surgical Procedures: Cancer Surgery, Total Knee Replacement, Other, Orthopedic Patient History - Other: None - Family History Mother Family History - Medical: , Anxiety Family History - Cardiac/Respiratory: Hypertension, Other Family History - Cancer: No pertinent family hx Father Family History - Medical: , Alcohol Abuse Family History - Cardiac/Respiratory: CVA/Stroke, Hypertension Family History - Cancer: No pertinent family hx Brother Family History - Medical: , Diabetes Type 2, Other Family History - Cardiac/Respiratory: No pertinent hx Family History - Cancer: No pertinent family hx - Social History Living Situations: home Abuse History: No History of abuse Psych History: Hx of Anxiety, Hx of Depression, Current tx/ever been on anti- depressants or anti-anxiety meds Smoking Status: Former smoker Have you smoked in the past 12 months: No Do you dip or chew tobacco: No Patient requests Smoking Cessation Consult: No Initiate information on Smoking Cessation: No Alcohol Use: none Drug Use: none - Immunizations Immunizations Up to Date: Yes Hx Pneumococcal Vaccination: No History of Influenza Vaccine: No Review Of Systems (GEN) - Review of Systems Generalized/Overall Review: Present: Weakness, Chills, Fever, Malaise, Fatigue EENTM: Present: No Symptoms Reported Respiratory: Present: Cough, Shortness of Breath Cardiac: Present: No Symptoms Reported Abdominal: Present: Nausea, Vomiting, Diarrhea. Absent: Hematemesis, Abdominal Pain, Constipation, Melena, Bright blood from rectum Genitourinary: Present: No Symptoms Reported Musculoskeletal: Present: No Symptoms Reported Neurological: Present: No Symptoms Reported Skin: Present: No Symptoms Reported Endocrine: Present: No Symptoms Reported Misc: All systems neg except as marked Allergies/Adverse Reactions: Allergies Allergy/AdvReac Type Severity Reaction Status Date / Time No Known Allergies Allergy Verified 06/15/17 15:11 Home Medications: HOME MEDICATIONS Aspirin [Aspirin Enteric Coated] 81 mg PO HS 07/25/12 [Last Taken Unknown] Benazepril HCl [Lotensin] 80 mg PO DAILY 07/25/12 [Last Taken 02/05/15 08:00] Fluvoxamine Maleate [Luvox Cr] 300 mg PO HS 07/25/12 [Last Taken Unknown] Insulin Lispro [Humalog] 30 unit SQ TID 07/25/12 [Last Taken Unknown] Simvastatin [Zocor] 20 mg PO HS 07/25/12 [Last Taken Unknown] Gabapentin 900 mg PO 0700,1200 09/09/13 [Last Taken Unknown] Insulin Glargine,Hum.rec.anlog [Lantus] 70 units SC BID 10/22/14 [Last Taken Unknown] rOPINIRole HCL [Requip] 0.5 mg PO HS 10/22/14 [Last Taken Unknown] Gabapentin [Neurontin] 1,200 mg PO HS 02/02/15 [Last Taken Unknown] amLODIPine BESYLATE [Norvasc] 10 mg PO DAILY 10/23/16 [Last Taken Unknown] Zolpidem Tartrate [Ambien] 10 mg PO HS 11/17/16 [Last Taken Unknown] Levothyroxine Sodium [Synthroid] 75 mcg PO DAILY 06/15/17 [Last Taken Unknown] Enoxaparin Sodium [Lovenox] 100 mg SC Q12H #4 disp.syrin 06/16/17 [Last Taken Unknown] Oseltamivir Phosphate [Tamiflu] 75 mg PO BID 4 Days #8 capsule 06/16/17 [Last Taken Unknown] Exam - Exam Vital Signs: Vital Signs - Last Taken Temp 37.4 C 06/16/17 07:37 Pulse 69 06/16/17 09:11 Resp 18 06/16/17 07:37 BP 154/74 06/16/17 09:11 Pulse Ox 92 06/16/17 07:37 Constitutional: Present: Alert, Oriented x3, Cooperative, No distress, Other - Appears unwell/acutely ill, Obese ENT Exam: Present: dry mucous membranes Eye Exam: bilateral eye: normal inspection Respiratory: Present: no respiratory distress, no accessory muscle use, other - Coarse breath sounds bilaterally without crackles, rhonchi or wheezes appreciated Cardiovascular/Chest: Present: regular rate, rhythm, no edema Abdomen: Present: soft, nontender, nondistended, obese, other - hyperactive bowel sounds. Absent: guarding, rigidity, rebound tenderness, CVA tenderness Extremity: Present: normal range of motion, non-tender, normal inspection, no pedal edema, no calf tenderness Skin Exam: Present: normal color, warm/dry Neurologic: Present: alert, normal mood/affect, oriented x 3 Appearance: Present: appropriate appearance, appropriate insight, neat, no memory impairment Eye contact: Present: cooperative, good eye contact, normal speech Thoughts: Present: normal thought pattern, no apparent hallucination Diagnostic Studies: Abnormal Lab Results 06/16/17 Range/Units 06:50 BUN 31 H (3-23) mg/dL Creatinine 2.11 H (0.4-1.4) mg/dL Est GFR (Non-Af Amer) 25 L (60-130) mL/min Random Glucose 144 H D (70-110) mg/dL Total Protein 5.0 L (6.2-8.2) gm/dL Albumin 1.8 L (3.4-5.0) gm/dl Laboratory Results WBC 3.4 K/mm3 (4.0-10.5) L 06/15/17 09:48 RBC 4.75 M/mm3 (4.2-5.4) 06/15/17 09:48 Hgb 14.6 gm/dL (12.5-16.0) 06/15/17 09:48 Hct 40.9 % (37.0-47.0) 06/15/17 09:48 MCV 86.1 fl (78-100) 06/15/17 09:48 MCH 30.7 pg (27-31) 06/15/17 09:48 MCHC 35.7 g/dl (32-36) 06/15/17 09:48 RDW 12.5 % (11.5-14.0) 06/15/17 09:48 Plt Count 189 K/mm3 (150-450) 06/15/17 09:48 MPV 11.6 fl (6.0-9.5) H 06/15/17 09:48 Immature Gran % (Auto) 0.30 % (0.001-0.429) 06/15/17 09:48 Immature Gran # (Auto) 0.01 K/mm3 (0.000-0.0310) 06/15/17 09:48 Neutrophils % 67.1 % (42-75.0) 06/15/17 09:48 Lymphocytes % 19.5 % (20-51) L 06/15/17 09:48 Monocytes % 12.8 % (0.0-9) H 06/15/17 09:48 Eosinophils % 0.0 % (0.0-3.0) 06/15/17 09:48 Basophils % 0.3 % (0.0-1.0) 06/15/17 09:48 Nucleated RBC % 0.0 k/mm3 (0-1) 06/15/17 09:48 Neutrophils # 2.3 K/mm3 (1.3-6.0) 06/15/17 09:48 Lymphocytes # 0.67 k/mm3 (1.5-3.5) L 06/15/17 09:48 Monocytes # 0.4 k/mm3 (0.0-1.0) 06/15/17 09:48 Eosinophils # 0.0 k/mm3 (0.0-0.7) 06/15/17 09:48 Absolute Basophils 0.0 k/mm3 (0.0-0.1) 06/15/17 09:48 Sodium 139 mmol/L (132-142) 06/16/17 06:50 Plasma Sodium 140 mmol/L (130-142) 06/16/17 06:50 Potassium 3.4 mmol/L (3.4-4.6) 06/16/17 06:50 Chloride 104 mmol/L (97-106) 06/16/17 06:50 Carbon Dioxide 27.4 mmol/L (24-32.6) 06/16/17 06:50 Anion Gap 11.0 mmol/L (6.8-13.8) 06/16/17 06:50 BUN 31 mg/dL (3-23) H 06/16/17 06:50 Creatinine 2.11 mg/dL (0.4-1.4) H 06/16/17 06:50 Est GFR (Non-Af Amer) 25 mL/min (60-130) L 06/16/17 06:50 BUN/Creatinine Ratio 14.7 (9.0-21.6) 06/16/17 06:50 Random Glucose 144 mg/dL (70-110) H D 06/16/17 06:50 Calcium 8.0 mg/dL (7.9-10.9) 06/16/17 06:50 Calcium Adj for Albumin 9.4 mg/dL (8.4-10.2) 06/16/17 06:50 Total Bilirubin 0.3 mg/dL (0.0-1.1) 06/16/17 06:50 AST 33 U/L (0-48) 06/16/17 06:50 ALT 25 U/L (19-67) 06/16/17 06:50 Alkaline Phosphatase 110 U/L (50-170) 06/16/17 06:50 Total Protein 5.0 gm/dL (6.2-8.2) L 06/16/17 06:50 Albumin 1.8 gm/dl (3.4-5.0) L 06/16/17 06:50 Lipase 319 U/L (73-393) 06/15/17 09:48 Urine Color Yellow 06/15/17 10:03 Urine Appearance Cloudy (CLEAR) 06/15/17 10:03 Urine pH 6.0 pH (5.0-7.0) 06/15/17 10:03 Ur Specific [place] 1.025 SP.GR. (1.005-1.010) 06/15/17 10:03 Urine Protein >=300 mg/dL (NEGATIVE) H 06/15/17 10:03 Urine Glucose (UA) >=1000 mg/dL (NEGATIVE) H 06/15/17 10:03 Urine Ketones 15 mg/dL (NEGATIVE) 06/15/17 10:03 Urine Blood 25 /ul (NEGATIVE) H 06/15/17 10:03 Urine Nitrate Negative (NEGATIVE) 06/15/17 10:03 Urine Bilirubin Negative mg/dl (NEGATIVE) 06/15/17 10:03 Prot Sulfosalicylic Acd 4+ mg/dL (0) H 06/15/17 10:03 Urine Urobilinogen Normal EU/dl (NORMAL) 06/15/17 10:03 Ur Leukocyte Esterase Negative /ul (NEGATIVE) 06/15/17 10:03 Urine RBC 0-5 /hpf (0-5) 06/15/17 10:03 Urine WBC 0-5 /hpf (0-5) 06/15/17 10:03 Ur Epithelial Cells 5-10 /hpf (0-5) H 06/15/17 10:03 Ur Renal Epithelial Cell Trace /hpf (NONE) 06/15/17 10:03 Amorphous Sediment Trace (NONE-FEW) 06/15/17 10:03 Urine Bacteria Trace (NONE) 06/15/17 10:03 Hyaline Casts Trace /LPF (NONE) 06/15/17 10:03 Urine Mucus Trace (NONE) 06/15/17 10:03 Influenza Type A Ag Negative (NEGATIVE) 06/15/17 09:04 Influenza Type B Ag Positive (NEGATIVE) H 06/15/17 09:04 Group A Strep Rapid Negative (NEGATIVE) 06/15/17 09:48 Assessment/Plan - Narrative Narrative: IMPRESSION & PLAN: Influenza B -The patient will be admitted to the hospital, outpatient observation status -Contact/droplet precautions in place -Treat with Tamiflu 75mg PO BID X 5 days WILLIAMS on CKD Stage 3 -Baseline creatinine is around 1.5 to 1.7 -IVF hydration and recheck BMP in AM Hypoxia -While in the emergency department, the patient was found to be hypoxic on room air with an oxygen saturation of 87%. Continue supplemental oxygen as needed with a goal to keep SpO2 90-92%. -The patient has a history of breast cancer which was diagnosed within the past year so she is at increased risk for VTE so we need to be sure we are not missing an underlying pulmonary embolism. Unfortunately, due to the patient's elevated creatinine we are unable to do a CT of the chest. I had ordered a VQ scan but unfortunately we are unable to get the necessary medications to complete the scan after 12:00 noon daily and unable on the weekends and thus we will not be able to get a VQ scan until Sunday. I will attempt to hydrate the patient overnight and recheck her kidney function in the morning and if improved , we will plan to do a CTA tomorrow. Hypokalemia -Patient given IV replacement in the emergency department. I will order an additional 40 mEq of KCl to be given now. Recheck BMP in the a.m. to monitor potassium level. 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
[2017-06-16] MEDS ORDERED: POTASSIUM CHLORIDE 20 MEQ TABLET.SA PO ONE (11:25)
--- NOTE | 2017-06-16 11:41 | DS ---
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 The patient also complains of severe generalized weakness and fatigue, body aches, fever and chills. She states that these symptoms have been going on for approximately 5 days. She denies any abdominal pain. She denies any urinary symptoms. Of note , the patient's has had similar complaints and symptoms recently as well. PROBLEM BASED HOSPITAL COURSE: Influenza B -The patient was admitted to the hospital, outpatient observation status -Contact/droplet precautions in place during her admission -Treat with Tamiflu 75mg PO BID X 5 days. Patient received 2 doses during her hospital admission and thus she was discharged home and instructed to complete an additional 4 days/8 doses of Tamiflu. WILLIAMS on CKD Stage 3 -Baseline creatinine is around 1.5 to 1.7 -Patient treated with IV fluid hydration during admission. Although kidney function did improve slightly with hydration, her creatinine was still a bit elevated beyond her baseline. The patient was instructed to drink plenty of fluids and we will plan to recheck a BMP on Sunday06/18/2017. Hypoxia -While in the emergency department, the patient was found to be hypoxic on room air with an oxygen saturation of 87%. Patient was given supplemental oxygen as needed with a goal to keep SpO2 90-92%. We will able to titrate the patient off oxygen prior to discharge. -The patient has a history of breast cancer which was diagnosed within the past year so she is at increased risk for VTE so we need to be sure we are not missing an underlying pulmonary embolism. Unfortunately, due to the patient's elevated creatinine we are unable to do a CTA of the chest. I had ordered a VQ scan on admission but unfortunately we are unable to get the necessary medications to complete the scan after 12:00 noon daily and unable on the weekends and thus we will not be able to get a VQ scan until Sunday. Hypokalemia -Patient given IV replacement in the emergency department and oral KCl 40mEq X 2 doses on the floor and the patients potassium level was within normal limits prior to discharge. The patient was discharged home in stable condition and instructed to drink plenty of fluids and stay well hydrated. She will return to [facility] on 06/18/2017, at which time we will plan to complete a VQ scan and also check a BMP to monitor the patients potassium level and kidney function. FOLLOW-UP APPOINTMENTS: -Follow-up with PCP, Dr. Ronquillo, within 1-2 weeks -VQ Scan here at [facility] at 11:00AM on 06/18/2017. Patient needs to arrive and check in at outpatient registration by 10:45 -Check BMP on Sunday06/18/2017 to monitor potassium level and kidney function NEW OR CHANGED MEDICATIONS: -Tamiflu 75mg PO BID X 4 additional days (patient received 2 doses during her admission) -Lovenox 100mg subQ Q12H X 4 doses DISCONTINUED MEDICATIONS: -Ibuprofen -Metformin for now given her elevated creatinine. I will likely plan to resume in the future if her kidney function allows. RADIOLOGY REPORTS: PA and lateral chest x-ray on 06/15/2017: Diffuse hyperinflation of the lungs bilaterally with finding of the hemidiaphragm. Diffuse chronic scarring and scattered calcified granulomas. The lungs are clear bilaterally. There is no consolidation, pleural effusion or pneumothorax. Cardiac silhouette and pulmonary vasculature are normal. Aortic tortuosity and atherosclerosis. The osseous structures demonstrate degenerative changes of the spine and shoulders. IMPRESSION: NO ACUTE CARDIOPULMONARY ABNORMALITY IDENTIFIED. Procedures Performed: none Discharge Location: Home Disposition: Home self-care Condition: Stable Discharge Activity: Activity as tolerated Discharge Diet: Consistent carbs, Other - Advance to diabetic diet as tolerated Referrals: Kristie Ronquillo DO [Primary Care Provider] - Problem Oriented Discharge Instructions to Patient/Family: Hyponatremia, Easy- to-Read, Constipation, Adult, [id number] Additional Patient Instructions (free text): -Please make TCM appointment unless intermediate discharge. Thank you! Betsy @ ext:0612. -Follow-up with PCP, Dr. Ronquillo, within 1-2 weeks -VQ Scan here at [facility] at 11:00AM on 06/18/2017. Patient needs to arrive and check in at outpatient registration by 10:45 -Check BMP on Sunday06/18/2017 to monitor potassium level and kidney function Prescriptions (Any new or edited meds): Enoxaparin Sodium [Lovenox] 100 mg SC Q12H #4 disp.syrin Oseltamivir Phosphate [Tamiflu] 75 mg PO BID 4 Days #8 capsule Complete Home Medications List: Complete Home Medication List: Aspirin [Aspirin Enteric Coated] 81 mg PO HS 07/25/12 Benazepril HCl [Lotensin] 80 mg PO DAILY 07/25/12 Fluvoxamine Maleate [Luvox Cr] 300 mg PO HS 07/25/12 Insulin Lispro [Humalog] 30 unit SQ TID 07/25/12 Simvastatin [Zocor] 20 mg PO HS 07/25/12 Gabapentin 900 mg PO 0700,1200 09/09/13 Insulin Glargine,Hum.rec.anlog [Lantus] 70 units SC BID 10/22/14 rOPINIRole HCL [Requip] 0.5 mg PO HS 10/22/14 Gabapentin [Neurontin] 1,200 mg PO HS 02/02/15 amLODIPine BESYLATE [Norvasc] 10 mg PO DAILY 10/23/16 Zolpidem Tartrate [Ambien] 10 mg PO HS 11/17/16 Levothyroxine Sodium [Synthroid] 75 mcg PO DAILY 06/15/17 Enoxaparin Sodium [Lovenox] 100 mg SC Q12H #4 disp.syrin 06/16/17 Oseltamivir Phosphate [Tamiflu] 75 mg PO BID 4 Days #8 capsule 06/16/17 Amb Orders for Discharge: Basic Metabolic Panel Time Frame: 06/18/17, Location: Determined By Patient Nuc Lung Perfusion VQ * Time Frame: 06/18/17, Location: Determined By Patient
[2017-06-16 13:29] VITALS: BP 158/84
[2017-06-17] MEDS ORDERED: LEVOTHYROXINE SODIUM 75 MCG TABLET PO SCH (07:00)
== END 2017-06-16 13:30 | disposition home or self-care (01) ==
LOC: ER 08:47 → MS 11:46
PROVIDERS: ADMIT Internal Medicine; ATTEND Internal Medicine
DX: N17.9 Acute kidney failure, unspecified; Z68.36 Body mass index [BMI] 36.0-36.9, adult; D05.11 Intraductal carcinoma in situ of right breast; J10.1 Influenza due to other identified influenza virus with other respiratory manifestations; I12.9 Hypertensive chronic kidney disease with stage 1 through stage 4 chronic kidney disease, or unspecified chronic kidney disease; Z87.891 Personal history of nicotine dependence; E87.6 Hypokalemia; E11.8 Type 2 diabetes mellitus with unspecified complications; R09.02 Hypoxemia; R53.1 Weakness; E86.0 Dehydration; N18.3 Chronic kidney disease, stage 3 (moderate); Z79.4 Long term (current) use of insulin
CPT/HCPCS: 36415; 71020; 71046; 80053; 81001; 83690; 85025; 87081; 87086; 87400; 87430; 87449; 94660; 96361; 96365; 96372; 96375; 96376; 99285; G0378; J2405